=== PATIENT | female | born 1975 | race Caucasian/White ===

== ENCOUNTER → 2016-04-29 | Outpatient (REF) ==
[~2016-04-29] MED LIST: /ALEN7SOL OR; /DULO30CA OR; /HALO2TA OR; /OXCA30TA; /OXCA30TA OR; ASPI81TA83 OR; ATIV0.5T OR; ATIV1TAB2; CALCCHW12 OR; CRANPOW2; DEPA500T OR; DEPA500T2 OR; DEPA500T2 PO; Haldol PO; LOTRCRE TOP; MULTIVIT; No Historical Meds; No home meds; PLAV75TA2 OR; PRIL20CA; PRIL40CA PO; PROZ40CA OR; QUET30XR; RISP0.5T20 OR; RISP3TAB16; RISPERDAL CONSTA; SEROQUEL XR; SIMV40TA2 OR; VITAMIN; ZYPR10TA OR; ZYPR20TA OR
--- NOTE | 2016-04-29 16:46 | REP ---
LUMBAR SPINE, FOUR VIEWS: HISTORY: Degenerative disc disease. COMPARISON: 06/27/2014. There is no acute fracture or subluxation. The L3-4 and L4-5 intervertebral discs are decreased in height consistent with disc degeneration. An osteophyte is present on L4. IMPRESSION: Degenerative change as described above. Signed by Jose Solis MD 04/29/2016 04:56 P
--- NOTE | 2016-04-29 16:47 | REP ---
LEFT SHOULDER, THREE VIEWS: HISTORY: Degenerative joint disease. There is no acute fracture or dislocation. The joint spaces are normal in appearance. IMPRESSION: There is no acute fracture or dislocation. Signed by Jose Solis MD 04/29/2016 04:56 P
== END ==
LOC: M SMT 14:52
PROVIDERS: ATTEND Internal Medicine
DX: Z02.1 Encounter for pre-employment examination (principal)

== ENCOUNTER 2016-05-26 16:23 | Emergency (ER) | payer MEDICARE ==
[2016-05-26 18:19] LABS: BASO % 0.4 % (0.0-1.0); EOS # 0.4 K/mm3 (0.0-0.50); EOS % 3.1 % (0.0-3.0); LARGE UNSTAINED CELL # 0.1 K/mm3 (0.0-0.4); LARGE UNSTAINED CELL % 1.2 % (0.0-4.0); LYMPH # 3.2 K/mm3 (1.5-4.5); LYMPH % 24.4 % (24.0-44.0); MEAN CORPUSCULAR HEMOGLOBIN 31.5 pg (27.0-33.0); MEAN CORPUSCULAR HGB CONC 33.6 g/dl (32.0-36.5); MEAN CORPUSCULAR VOLUME 93.8 fl (80.0-96.0); MONO # 0.8 K/mm3 (0.0-0.8); MONO % 6.1 % (0.0-5.0); NEUTROPHILS % 64.8 % (36.0-66.0); PLATELET COUNT, AUTOMATED 292 k/mm3 (150-450); RED CELL DISTRIBUTION WIDTH 12.5 % (11.5-14.5); WHITE BLOOD COUNT 12.3 K/mm3 (4.0-10.0)
[2016-05-26 18:37] LABS: CONTROL LINE HCG INT CTR LINE PRESENT
[2016-05-26 18:43] LABS: ALBUMIN 3.3 GM/DL (3.2-5.2); ALBUMIN/GLOBULIN RATIO 0.79 (1.00-1.93); ALKALINE PHOSPHATASE 85 U/L (45-117); ALT/SGPT 27 U/L (12-78); ANION GAP 8 MEQ/L (8-16); AST/SGOT 12 U/L (15-37); BILIRUBIN,TOTAL < 0.1 MG/DL (0.2-1.0); BLOOD UREA NITROGEN 17 MG/DL (7-18); CALCIUM LEVEL 9.3 MG/DL (8.5-10.1); CARBON DIOXIDE LEVEL 29 MEQ/L (21-32); CHLORIDE LEVEL 106 MEQ/L (98-107); CREATININE FOR GFR 0.64 MG/DL (0.55-1.02); GLOMERULAR FILTRATION RATE > 60.0 (>58); GLUCOSE, FASTING 119 MG/DL (70-105); POTASSIUM SERUM 3.8 MEQ/L (3.5-5.1); SODIUM LEVEL 143 MEQ/L (136-145); TOTAL PROTEIN 7.5 GM/DL (6.4-8.2)
[2016-05-26] MEDS ORDERED: DOXYCYCLINE HYCLATE 100 MG TAB As Ordered ONE (20:47)
[2016-05-26] MEDS ORDERED: metroNIDAZOLE (FLAGYL) 500 MG TAB As Ordered ONE (20:47)
[2016-05-26] MEDS ORDERED: AZITHROMYCIN 250 MG TAB As Ordered ONE (20:48)
[2016-05-26] MEDS ORDERED: cefTRIAXone SOD 250 MG VIAL (J0696) As Ordered ONE (20:50)
[2016-05-26] MEDS ORDERED: LIDOCAINE 1% MDV 20ML VIAL As Ordered ONE (20:51)
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
[2016-05-27 10:59] LABS: CONTROL LINE INT CTR LINE PRESENT; HIV SCRN NEGATIVE (NEGATIVE); HIV SCRN1 NEGATIVE (NEGATIVE)
[2016-05-27 11:21] LABS: HEPATITIS B SURFACE ANTIBODY POSITIVE (POSITIVE)
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
== END 2016-05-26 21:39 | disposition home or self-care (01) ==
LOC: M ED 16:23
DX: K62.89 Other specified diseases of anus and rectum (principal); F25.9 Schizoaffective disorder, unspecified; F41.9 Anxiety disorder, unspecified; F32.9 Major depressive disorder, single episode, unspecified; Z79.899 Other long term (current) drug therapy; Z88.8 Allergy status to other drugs, medicaments and biological substances
CPT/HCPCS: 36415; 80053; 84703; 85025; 86706; 86780; 86803; 87340; 87806; 96372; 99285; J0696

== ENCOUNTER 2016-06-26 16:19 | Emergency (ER) | payer MEDICARE ==
[~2016-06-26] VITALS: Ht 160 cm; Wt 94.3 kg
[2016-06-26] MEDS ORDERED: BAYE325T12 PO (16:38)
[2016-06-26] MEDS ORDERED: DIVA500T3 PO (16:38)
[2016-06-26] MEDS ORDERED: HALD5INJ2 PO (16:38)
[2016-06-26] MEDS ORDERED: ST J1CAP PO (16:38)
--- NOTE | 2016-06-26 17:20 | REP ---
Clinical: Pain. Technique: AP, lateral, bilateral oblique views of the left hand. Findings: Age-related changes are appreciated including mild joint space narrowing involving the interphalangeal joints and mild degenerative changes to the radiocarpal joint. No acute fracture dislocation. No subcutaneous emphysema or radiodense foreign body. Impression: Mild age-related degenerative changes Signed by Kian Dial MD 06/26/2016 05:12 P
--- NOTE | 2016-06-26 17:27 | REP ---
Clinical: Trauma . Technique: AP, lateral, bilateral oblique views left ankle . Findings: No acute fracture or dislocation. Skeletal structures and joint spaces are intact and normal. Ankle mortise appears stable. No subcutaneous emphysema or radiodense foreign body. Impression: No acute fracture or dislocation. Signed by Kian Dial MD 06/26/2016 05:18 P
--- NOTE | 2016-06-26 17:27 | REP ---
Clinical: Trauma. Technique: AP and lateral views of the right forearm. Findings: No acute fracture or dislocation. Skeletal structures, joint spaces, and surrounding soft tissues appear normal. Impression: Normal right forearm. No acute fracture or dislocation. Signed by Kian Dial MD 06/26/2016 05:19 P
--- NOTE | 2016-06-26 17:28 | REP ---
Clinical: Trauma. Technique: AP view of the pelvis with neutral and frog lateral views of the left hip. Findings: No acute fracture dislocation. Skeletal structures, joint spaces, and surrounding soft tissues appear normal for age. Impression: No acute fracture or dislocation. Signed by Kian Dial MD 06/26/2016 05:19 P
--- NOTE | 2016-06-26 17:31 | REP ---
Clinical: Trauma. Technique: AP, lateral, bilateral oblique and sunrise views left knee. Comparison: 06/27/2014. Findings: The osseous structures and joint spaces are intact and there is no evidence for acute fracture or dislocation. No joint effusion is appreciated. Surrounding soft tissues are unremarkable. No subcutaneous emphysema or radiodense foreign body. [place] view suggests mild patellofemoral joint space narrowing. Impression: No acute fracture or dislocation. Signed by Kian Dial MD 06/26/2016 05:22 P
[2016-06-26 18:39] VITALS: BP 132/90
== END 2016-06-26 18:43 | disposition home or self-care (01) ==
LOC: EDBD 16:19 → EDSEX 16:19 → M ED 17:28
DX: T14.8 Other injury of unspecified body region (principal); V09.9XXA Pedestrian injured in unspecified transport accident, initial encounter; Y92.410 Unspecified street and highway as the place of occurrence of the external cause; Y93.01 Activity, walking, marching and hiking; Y99.9 Unspecified external cause status; Z79.82 Long term (current) use of aspirin; Z79.899 Other long term (current) drug therapy; Z91.040 Latex allergy status; Z91.010 Allergy to peanuts; Z88.8 Allergy status to other drugs, medicaments and biological substances

== ENCOUNTER 2019-01-24 14:24 | Inpatient (IN) | payer MEDICARE, OTHER ==
[~2019-01-24] VITALS: Ht 162.6 cm; Wt 108.8 kg
[~2019-01-24 14:24] MED LIST changes: -/DULO30CA OR; -/HALO2TA OR; -/OXCA30TA; -/OXCA30TA OR; +BAYE325T12 PO; +CYMB1CAP5 OR; +DIVA500T94 PO; +HALD5INJ2 PO; +HALO1TAB19 OR; -QUET30XR; +SERO300T20; +ST J300C15 PO; +TRIL1TAB; +TRIL1TAB OR
[2019-01-24 15:37] LABS: HEMOGLOBIN 14.9 g/dl (12.0-15.5); MEAN CORPUSCULAR HEMOGLOBIN 29.7 pg (27.0-33.0); MEAN CORPUSCULAR HGB CONC 32.4 g/dl (32.0-36.5); MEAN CORPUSCULAR VOLUME 91.8 fl (80.0-96.0); PLATELET COUNT, AUTOMATED 365 10^3/uL (150-450); RED BLOOD COUNT 5.01 10^6/uL (4.00-5.40); WHITE BLOOD COUNT 9.5 10^3/uL (4.0-10.0)
[2019-01-24 16:25] LABS: ACETAMINOPHEN LEVEL < 2.0 UG/ML (10.0-30.0); ALBUMIN 2.8 GM/DL (3.2-5.2); ALT/SGPT 55 U/L (12-78); BILIRUBIN,DIRECT < 0.1 MG/DL (0.0-0.2); BILIRUBIN,TOTAL 0.2 MG/DL (0.2-1.0); BLOOD UREA NITROGEN 14 MG/DL (7-18); CALCIUM LEVEL 8.6 MG/DL (8.5-10.1); CARBON DIOXIDE LEVEL 23 MEQ/L (21-32); CHLORIDE LEVEL 111 MEQ/L (98-107); CREATININE FOR GFR 0.86 MG/DL (0.55-1.30); ETHYL ALCOHOL (ETHANOL) < 0.003 % (0.000-0.010); GLOMERULAR FILTRATION RATE > 60.0 (>58); GLUCOSE, FASTING 154 MG/DL (70-100); POTASSIUM SERUM 3.9 MEQ/L (3.5-5.1); SALICYLATE LEVEL 3.4 MG/DL (5.0-30.0); SODIUM LEVEL 142 MEQ/L (136-145); TOTAL PROTEIN 6.7 GM/DL (6.4-8.2)
[2019-01-24] MEDS ORDERED: MAALOX 30 ML SUSP *UDC PO PRN (19:15)
[2019-01-24] MEDS ORDERED: MOM 30ML SUSPENSION UDC PO PRN (19:15)
[2019-01-24 22:11] VITALS: BP 134/92
[2019-01-25 07:46] VITALS: BP 125/75
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
[2019-01-25] MEDS: ACETAMINOPHEN TAB 650MG DOSE (2X325MG) PO PRN (12:20)
--- NOTE | 2019-01-25 13:07 | HPEPDOC ---
General Date of Admission Jan 24, 2019 at 19:10 Date of Service: Jan 25, 2019 Attending Physician: JON CARBONE MD Chief Complaint The patient is a 43-year-old female admitted with a reason for visit of Schizophrenia. Source: Patient, RN/MD Exam Limitations: No limitations Timing/Duration: Week(s) Severity: Mild Associated Symptoms: Denies Symptoms History of Present Illness Consultation Medical as Patient referred by Inpatient Mental Health Unit: Physical Examination 43 year old female seen today on inpatient mental health unit examination room for her physical examination by Medical Hospitalist JOINTER MACHINE for medical clearance. She has significant medical history of schizophrenia for which she was admitted inpatient on January 24 2019. She denies chest pain, palpitations, urine voices, seeing people objects, wanting to harm herself or someone else, shortn ess of breath, diarrhea, nausea and vomiting, dizziness, and fainting. Home Medications Scheduled Metformin HCl (Metformin HCl) 500 Mg Tablet, 500 MG PO ACB for DM Allergies Coded Allergies: NUTS (Verified Allergy, Unknown, 02/02/09) latex (Verified Allergy, Unknown, 01/24/19) risperidone (Verified Allergy, Unknown, 01/24/19) Past Medical History Medical History See HPI Family History Significant Family History: Diabetes Social History * Smoker: Denies Alcohol: Denies Drugs: prescription drugs Recent Travel/Sick Contacts: Denies: Recent travel, Recent sick contacts Psychosocial History: [place] SI and HI, Schizophrenia, Loose associations A-FIB/CHADSVASC A-FIB History Current/History of A-Fib/PAF?: No Review of Systems Constitutional: Denies: Chills, Fever, Malaise, Night Sweats, Weakness, Fatigue, Weight Loss, Lethargy, Other Eyes: Denies: Pain, Vision change, Conjunctivae inflammation, Eyelid inflam mation, Redness, Other ENT: Denies: Head Aches, Ear Pain, Dysphagia, Sinus Congestion, Post Nasal Drip, Sore Throat, Epistaxis, Other Symptoms Skin: Denies: Rash, Lesions, Jaundice, Bruising, Itching, Dry, Breakdown, Nail Changes, Other Pulmonary: Denies: Dyspnea, Cough, Pleuritic Chest Pain, Other Symptoms Cardiovascular: Denies: Chest Pain, Palpitations, Orthopnea, Paroxysmal Noc. Dyspnea, Edema, Lt Headedness, Other Symptoms Gastrointestinal: Denies: Nausea, Vomiting, Abdominal Pain, Diarrhea, Constipation, Melena, Hematochezia, Other Symptoms Genitourinary: Denies: Dysuria, Frequency, Incontinence, Hematuria, Retention, Other Symptoms Hematologic: Denies: Bruising, Bleeding Excessively, Petecchia, Purpura, Enlarged Lymph Nodes, Other Hematologic Endocrine: Denies: Polydipsia, Polyphagia, Polyuria, Heat Intolerance, Cold Intolerance, Other Endocrine Sx Musculoskeletal: Denies: Neck Pain, Back Pain, Shoulder Pain, Arm Pain, Hand Pain, Leg Pain, Foot Pain, Joint Pain, Muscle Pain, Spasms, Other Symptoms Neurological: Denies: Weakness, Numbness, Incoordination, Change in speech, Confusion, Seizures, Other Symptoms Psych: Reports: Depression Physical Examination General Exam: Positive: Alert, Cooperative, No Acute Distress Eye Exam: Positive: PERRLA, Conjunctiva & lids normal, EOMI ENT Exam: Positive: Atraumatic, Mucous membr. moist/pink, Pharynx Normal Neck Exam: Positive: Supple, +2 carotid pulse wo bruit Chest Exam: Positive: Clear to auscultation, Normal air movement Heart Exam: Positive: Rate Normal, Regular Rhythm, Normal S1, Normal S2 Abdomen Exam: Positive: Normal bowel sounds, Soft Extremity Exam: Positive: Normal pulses Skin Exam: Positive: Nl turgor and temperature Neuro Exam: Positive: Normal Gait, Strength at 5/5 X4 ext, Cranial Nerves 3-12 NL Psych Exam: Positive: Anxiety (states she is ready to go home), Memory Intact, Oriented x 3 Vital Signs Vital Signs Date Time Temp Pulse Resp B/P (MAP) Pulse Ox O2 Delivery O2 Flow Rate FiO2 01/25/19 07:46 99.1 94 16 125/75 (92) 01/25/19 07:44 Room Air 01/24/19 22:11 98 Laboratory Data Labs 24H Laboratory Tests 2 01/24/19 15:25: Nucleated Red Blood Cells % (auto) 0.0, Anion Gap 8, Glomerular Filtration Rate > 60.0, Calcium Level 8.6, Total Bilirubin 0.2, Direct Bilirubin < 0.1, Aspar [place] Amino Transf (AST/SGOT) 29, Alanine Aminotransferase (ALT/SGPT) 55, Alkaline Phosphatase 96, Total Protein 6.7, Albumin 2.8L, Albumin/Globulin Ratio 0.72L, Thyroid Stimulating Hormone (TSH) 3.200, Salicylates Level 3.4L, Acetaminophen Level < 2.0L, Ethyl Alcohol Level < 0.003 CBC/BMP Laboratory Tests 01/24/19 15:25 Problems (1) Schizophrenia Status: Acute Response to Treatment: Progressing Discussed With: Nurse, Patient Problem Specific Plan: Monitor Clinically Problem Text: 43 year old female seen today on inpatient mental health unit examination room for her physical examination by Medical Hospitalist JOINTER MACHINE for medical clearance. She has significant medical history of schizophrenia for which she was admitted inpatient on January 24 2019. Schizophrenia exacerbation.Acute on chronic Continue with Inpatient mental health psychiatry treatment plan of care ad therapy Yhu-[id number]-Bddti A1C 6.2 Episodes of hyperglycemia POC daily Patient is to follow-up with her primary care provider outpatient, will start patient on metformin 500 mg to be discharge with daily breakfast Patient is medically cleared, Vital signs stable. DVT prophylaxis: Not needed, patient ambulatory Discharge: Pending inpatient mental health Plan / VTE VTE Prophylaxis Ordered?: No VTE Exclusion Mechanical Proph: Low Risk for VTE VTE Exclusion Pharmacological: At Low Risk for VTE TRISTON BALTAZAR Jan 25, 2019 13:07
[2019-01-25 13:49] LABS: BASO # 0.1 10^3/uL (0.0-0.2); BASO % 0.6 % (0.0-1.0); EOS # 0.4 10^3/uL (0.0-0.5); HEMOGLOBIN 13.5 g/dl (12.0-15.5); LYMPH # 2.8 10^3/uL (1.5-5.0); LYMPH % 26.8 % (24.0-44.0); MEAN CORPUSCULAR HEMOGLOBIN 30.2 pg (27.0-33.0); MEAN CORPUSCULAR HGB CONC 32.1 g/dl (32.0-36.5); MONO # 0.7 10^3/uL (0.0-0.8); MONO % 6.9 % (0.0-5.0); NEUTROPHILS # 6.3 10^3/uL (1.5-8.5); NEUTROPHILS % 61.3 % (36.0-66.0); PLATELET COUNT, AUTOMATED 323 10^3/uL (150-450); RED BLOOD COUNT 4.47 10^6/uL (4.00-5.40); WHITE BLOOD COUNT 10.3 10^3/uL (4.0-10.0)
[2019-01-25 14:15] LABS: ALBUMIN 2.5 GM/DL (3.2-5.2); ALT/SGPT 55 U/L (12-78); BILIRUBIN,TOTAL 0.5 MG/DL (0.2-1.0); BLOOD UREA NITROGEN 13 MG/DL (7-18); CALCIUM LEVEL 8.4 MG/DL (8.5-10.1); CARBON DIOXIDE LEVEL 27 MEQ/L (21-32); CHLORIDE LEVEL 108 MEQ/L (98-107); CREATININE FOR GFR 0.75 MG/DL (0.55-1.30); GLOMERULAR FILTRATION RATE > 60.0 (>58); GLUCOSE, FASTING 126 MG/DL (70-100); POTASSIUM SERUM 3.6 MEQ/L (3.5-5.1); SODIUM LEVEL 141 MEQ/L (136-145); TOTAL PROTEIN 6.1 GM/DL (6.4-8.2)
[2019-01-25 14:44] LABS: HEMOGLOBIN A1c 6.2 %
[2019-01-25] MEDS: NICOTINE 21MG/24HR 1 EA TRANSDERMAL TD SCH (14:49)
[2019-01-25 18:01] VITALS: BP 129/68
[2019-01-26 06:35] VITALS: BP 141/94
[2019-01-26] MEDS: NICOTINE 21MG/24HR 1 EA TRANSDERMAL TD SCH (09:31)
--- NOTE | 2019-01-26 10:20 | MHIPNPDOC ---
[facility] Progress Note Progress Note Nicole Mahan Inpatient Progress Note Nicole Mahan Select Gender MRN: N/A Date of : MM/DD/YYYY Date of Service: 01/26/2019 History of Present Illness The patient a 43-year-old woman with a history of psychotic illness presents in a psychotic and bizarre state where she was unable to take care of herself. She had been inside of her home unable to attend to her needs. She was brought in by child support case officer as she was noted to become aggressive, bizarre, and unable to attend to her needs. When I met with the patient, she was unable to be engage with any meaningful interview as she was so psychotic and disorganized that she remained in her room for the majority of the day. Interval History The patient is attempted to be met with today, however she still remains fairly distorted, unable to engage in any meaningful interview. She sits in her room for the majority of the day acting fairly bizarre. She has only come out to eat and engaged to shower. However, she is unable to answer any of my questions to any meaningful degree. She is able to simply provide yes and no answers. She still remains highly distorted. She has had no major behavioral problems overnight. Review Of Systems General: Denies fever or appetite changes Cardiovascular: Denies Chest pain or palpitations GI: Denies Nausea, vomiting, or bowel changes Respiratory: Denies shortness of breath or cough Neuro: Denies dizziness, tremors Derm: Denies any rashes or pruritus MSK: Denies any muscle tightness or stiffness HEENT: Denies any vision changes or headaches Heme/Lymph: denies any bruising or bleeding Endo: denies any cold/heat intolerance or water intake changes Psychotherapy None on this visit. Vital Signs Reviewed. Mental Status Examination General: Poor hygiene. Speech: Sparse, monotonous. Thought processes: Tangential. MSK: Smooth and coordinated gait, no signs of tremors or involuntary orofacial movements Thought content: Bizarre. Abstract reasoning, and computation: Impaired. Description of associations: Impaired. Description of abnormal or psychotic thoughts: Denies any suicidal or homicidal ideation. Denies any auditory or visual hallucinations. Does appear to be responding to internal stimuli. Judgment: Poor. Insight: Poor. Orientation: Alert and orientated 3 Cognition: Grossly normal Recent and remote memory: Intact Attention span and concentration: Intact Fund of knowledge: Adequate Mood: "Fine." Affect: Flat with a constricted range. Diagnoses Schizophrenia, tobacco use disorder, unspecified. Assessment and Plan Schizophrenia: Start Haldol 5 mg nightly. Disposition The patient will need a further inpatient admission in order to treat her severe psychosis that impairs her from even basic activities placing her safety in danger. Time Spent 10 minutes [id number]. Vital Signs Vital Signs Date Time Temp Pulse Resp B/P (MAP) Pulse Ox O2 Delivery O2 Flow Rate FiO2 01/26/19 08:19 Room Air 01/26/19 06:35 98.0 67 16 141/94 (110) 01/24/19 22:11 98 Laboratory Data 24H Labs Laboratory Tests 2 01/25/19 13:35: Immature Granulocyte % (Auto) 0.4, Neutrophils (%) (Auto) 61.3, Lymphocytes (%) (Auto) 26.8, Monocytes (%) (Auto) 6.9H, Eosinophils (%) (Auto) 4.0H, Basophils (%) (Auto) 0.6, Neutrophils # (Auto) 6.3, Lymphocytes # (Auto) 2.8, Monocytes # (Auto) 0.7, Eosinophils # (Auto) 0.4, Basophils # (Auto) 0.1, Nucleated Red Blood Cells % (auto) 0.0, Anion Gap 6L, Glomerular Filtration Rate > 60.0, Estimated Mean Plasma Glucose 131H, Hemoglobin A1c 6.2, Calcium Level 8.4L, Total Bilirubin 0.5#, Aspartate Amino Transf (AST/SGOT) 32, Alanine Aminotransferase (ALT/SGPT) 55, Alkaline Phosphatase 77, Total Protein 6.1L, Albumin 2.5L, Albumin/Globulin Ratio 0.69L CBC/BMP Laboratory Tests 01/25/19 13:35 Current Medications Current Medications Medications (Trade) Dose Ordered Sig/Manuel Route PRN Reason Start Time Stop Time Status Last Admin Dose Admin Acetaminophen (Tylenol Tab) 650 mg Q6HP PRN PO HEADACHE or DISCOMFORT 01/24/19 19:15 01/25/19 12:20 Al Hydrox/Mg Hydrox/Simethicone (Mylanta) 30 ml Q4HP PRN PO HEARTBURN/INDIGESTION 01/24/19 19:15 Home Med (Med Rec Complete!) ASDIRECTED XX 01/24/19 20:15 01/24/19 20:15 DC Magnesium Hydroxide (Milk Of Magnesia) 30 ml DAILYPRN PRN PO CONSTIPATION 01/24/19 19:15 Nicotine (Nicoderm Cq 21mg) 1 patch DAILY TD 01/25/19 09:00 01/26/19 09:31 Olanzapine (ZyPREXA ZYDIS) 5 mg Q4HP PRN PO AGITATION 01/24/19 19:15 Trazodone HCl (Desyrel) 50 mg QHSP PRN PO INSOMNIA 01/24/19 19:15 Allergies Coded Allergies: NUTS (Verified Allergy, Unknown, 02/02/09) latex (Verified Allergy, Unknown, 01/24/19) risperidone (Verified Allergy, Unknown, 01/24/19) DILLAN ESPINOSA DO Jan 26, 2019 10:20
[2019-01-26 11:55] VITALS: BP 127/70
[2019-01-26 18:00] VITALS: BP 131/75
[2019-01-26] MEDS ORDERED: HALOPERIDOL 5 MG TAB PO SCH (21:00)
[2019-01-27] MEDS: OLANZapine ORAL DISINTEGRATING TAB 5MG PO PRN ×2 (04:25→09:14)
[2019-01-27 06:17] VITALS: BP 146/85
[2019-01-27] MEDS: NICOTINE 21MG/24HR 1 EA TRANSDERMAL TD SCH (09:14)
--- NOTE | 2019-01-27 10:03 | MHIPNPDOC ---
[facility] Progress Note Progress Note Nicole Mahan Inpatient Progress Note Nicole Mahan Select Gender MRN: N/A Date of : MM/DD/YYYY Date of Service: 01/27/2019 History of Present Illness The patient a 43-year-old woman with a history of psychotic illness presents in a psychotic and bizarre state where she was unable to take care of herself. She had been inside of her home unable to attend to her needs. She was brought in by manager case as she was noted to become aggressive, bizarre, and unable to attend to her needs. When I met with the patient, she was unable to be engage with any meaningful interview as she was so psychotic and disorganized that she remained in her room for the majority of the day. Interval History The patient is met with today. She reports that the Haldol was very effective and she is much less anxious and a little more focused today. She was more amenable and more talkative today, less bizarrely preoccupied. She still remains difficult to interview as she stares blankly when spoken to, however, she is able to engage with a discussion more thoroughly about her altered thoughts and her difficulty sleeping prior to coming in. She reports that she has had difficulty sleeping prior to coming into the hospital, but that she remembers nothing else. No major behavioral problems overnight, still requires significant prompting for basic hygiene and activities of daily living. Review Of Systems Denies any side effects from her medications. No tremors, dizziness, headaches, chest pain, palpitations, GI upset. Psychotherapy None on this visit. Vital Signs Reviewed. Mental Status Examination General: Poor hygiene. Speech: Improved. Thought processes: Tangential. MSK: Smooth and coordinated gait, no signs of tremors or involuntary orofacial movements Thought content: Bizarre. Abstract reasoning, and computation: Impaired. Description of associations: Impaired. Description of abnormal or psychotic thoughts: Denies any suicidal or homicidal ideation. Denies any auditory or visual hallucinations. Does appear to be responding to internal stimuli. Judgment: Poor. Insight: Poor. Orientation: Alert and orientated 3 Cognition: Grossly normal Recent and remote memory: Intact Attention span and concentration: Intact Fund of knowledge: Adequate Mood: "Fine." Affect: Flat with a constricted range. Diagnoses Schizophrenia, tobacco use disorder, unspecified. Assessment and Plan Schizophrenia: Increase Haldol to 5 mg BID. Tobacco use disorder: Nicotine patch. Disposition The patient will need a further inpatient admission in order to treat her severe psychosis that impairs her from even basic activities placing her safety in danger. Time Spent 10 minutes [id number]. Vital Signs Vital Signs Date Time Temp Pulse Resp B/P (MAP) Pulse Ox O2 Delivery O2 Flow Rate FiO2 01/27/19 06:17 98.3 94 16 146/85 (105) 01/26/19 11:55 96 Room Air Current Medications Current Medications Medications (Trade) Dose Ordered Sig/Manuel Route PRN Reason Start Time Stop Time Status Last Admin Dose Admin Acetaminophen (Tylenol Tab) 650 mg Q6HP PRN PO HEADACHE or DISCOMFORT 01/24/19 19:15 01/25/19 12:20 Al Hydrox/Mg Hydrox/Simethicone (Mylanta) 30 ml Q4HP PRN PO HEARTBURN/INDIGESTION 01/24/19 19:15 Haloperidol (Haldol) 5 mg QHS PO 01/26/19 21:00 01/26/19 20:51 Home Med (Med Rec Complete!) ASDIRECTED XX 01/24/19 20:15 01/24/19 20:15 DC Magnesium Hydroxide (Milk Of Magnesia) 30 ml DAILYPRN PRN PO CONSTIPATION 01/24/19 19:15 Nicotine (Nicoderm Cq 21mg) 1 patch DAILY TD 01/25/19 09:00 01/27/19 09:14 Olanzapine (ZyPREXA ZYDIS) 5 mg Q4HP PRN PO AGITATION 01/24/19 19:15 01/27/19 09:14 Trazodone HCl (Desyrel) 50 mg QHSP PRN PO INSOMNIA 01/24/19 19:15 Allergies Coded Allergies: NUTS (Verified Allergy, Unknown, 02/02/09) latex (Verified Allergy, Unknown, 01/24/19) risperidone (Verified Allergy, Unknown, 01/24/19) DILLAN ESPINOSA DO Jan 27, 2019 10:03
[2019-01-27] MEDS: HALOPERIDOL 5 MG TAB PO SCH ×2 (11:19→21:53)
[2019-01-27 18:00] VITALS: BP 140/86
[2019-01-27] MEDS ORDERED: METF-839 PO (18:32)
[2019-01-28 06:41] VITALS: BP 151/72
[2019-01-28] MEDS: metFORMIN (GLUCOPHAGE) 500 MG TAB PO SCH (08:00)
[2019-01-28] MEDS: HALOPERIDOL 5 MG TAB PO SCH ×2 (08:21→21:27)
[2019-01-28] MEDS: NICOTINE 21MG/24HR 1 EA TRANSDERMAL TD SCH (08:21)
[2019-01-28 16:09] VITALS: BP 122/57
[2019-01-28] MEDS: traZODone 50 MG TAB PO PRN (21:27)
[2019-01-29] MEDS: OLANZapine ORAL DISINTEGRATING TAB 5MG PO PRN (02:19)
[2019-01-29] MEDS: metFORMIN (GLUCOPHAGE) 500 MG TAB PO SCH (09:01)
[2019-01-29] MEDS: NICOTINE 21MG/24HR 1 EA TRANSDERMAL TD SCH (09:04)
[2019-01-29] MEDS: HALOPERIDOL 5 MG TAB PO SCH ×2 (09:04→22:10)
[2019-01-29 16:19] VITALS: BP 127/70
--- NOTE | 2019-01-29 21:50 | MHIPN ---
DATE: 01/28/2019 The patient today tells me as she is lying on her bed all wrapped up in her blanket, but her face is uncovered, she tells me "I'm doing good," and she said that she slept good. She had no eye contact throughout this. T MENTAL STATUS EXAM: The patient is alert. She is oriented to person and place. There is no formal thought disorder noted. She says her mood is "good." Affect is flat. I did not elicit any psychotic symptoms, but she appears to be responding to internal stimuli. She maintains no eye contact. She denies suicidal or homicidal ideations. Concentration is fair. Insight and judgment are poor. DIAGNOSIS: Schizophrenia. TREATMENT PLAN: We will continue to monitor this patient for continued resolution of psychotic symptoms and to titrate medications as indicated.. MTDD
[2019-01-29] MEDS: traZODone 50 MG TAB PO PRN (22:10)
[2019-01-30 06:54] VITALS: BP 145/74
[2019-01-30] MEDS: metFORMIN (GLUCOPHAGE) 500 MG TAB PO SCH (08:00)
[2019-01-30] MEDS: NICOTINE 21MG/24HR 1 EA TRANSDERMAL TD SCH (08:41)
[2019-01-30] MEDS: HALOPERIDOL 5 MG TAB PO SCH ×2 (08:41→21:46)
[2019-01-30] MEDS ORDERED: NYSTATIN OINTMENT 15 GM TOP PRN (12:00)
[2019-01-30] MEDS ORDERED: diphenhydrAMINE 25 MG CAP PO PRN (12:00)
[2019-01-30] MEDS: NYSTATIN 100,000 UNITS/GM TOPICAL PWD 15 GM EXT PRN (13:59)
[2019-01-30] MEDS ORDERED: FLUCONAZOLE 50MG TABLET PO ONE (14:00)
--- NOTE | 2019-01-30 19:25 | MHIPNPDOC ---
[facility] Progress Note Progress Note Nicole Mahan Inpatient Progress Note Nicole Mahan Select Gender MRN: N/A Date of : MM/DD/YYYY Date of Service: 01/30/2019 History of Present Illness The patient a 43-year-old woman with a history of psychotic illness presents in a psychotic and bizarre state where she was unable to take care of herself. She had been inside of her home unable to attend to her needs. She was brought in by case coordinator as she was noted to become aggressive, bizarre, and unable to attend to her needs. When I met with the patient, she was unable to be engage with any meaningful interview as she was so psychotic and disorganized that she remained in her room for the majority of the day. Interval History The patient's met with today. She's still somewhat bizarre, but reports that her anxiety has improved. She still remains isolated to her room, unable to discuss the events . Her family report that they are still cleaning her apartment and that is infested with rats and unsafe to return to. The patient still is quite bizarre, unable to engage in meaningful conversation other than more or less simple yes and no answers. The patient has not had any major behavioral problems, but has made some mild improvement in terms of her ability to socialize more, but continues to require prompting for basic ADLs. Review Of Systems Denies any side effects from her medications. No tremors, dizziness, headaches, chest pain, palpitations, GI upset. Psychotherapy None on this visit. Vital Signs Reviewed. Mental Status Examination General: Improved hygiene. Speech: Mildly more fluid. Thought processes: Tangential. MSK: Smooth and coordinated gait, no signs of tremors or involuntary orofacial movements Thought content: Bizarre. Abstract reasoning, and computation: Impaired. Description of associations: Impaired. Description of abnormal or psychotic thoughts: Denies any suicidal or homicidal ideation. Denies any auditory or visual hallucinations. Does appear to be responding to internal stimuli. Judgment: Poor. Insight: Poor. Orientation: Alert and orientated 3 Cognition: Grossly normal Recent and remote memory: Intact Attention span and concentration: Intact Fund of knowledge: Adequate Mood: "Fine." Affect: Flat with a constricted range. Diagnoses Schizophrenia, tobacco use disorder, unspecified. Assessment and Plan Schizophrenia: Continue 5 mg of Haldol BID. Tobacco use disorder: Nicotine patch. Disposition The patient will need a further inpatient admission in order to treat her severe psychosis that impairs her from even basic activities placing her safety in danger. Time Spent 15 minutes [id number]. Vital Signs Vital Signs Date Time Temp Pulse Resp B/P (MAP) Pulse Ox O2 Delivery O2 Flow Rate FiO2 01/30/19 06:54 97.3 93 16 145/74 (97) 01/29/19 07:57 Room Air 01/26/19 11:55 96 Current Medications Current Medications Medications (Trade) Dose Ordered Sig/Manuel Route PRN Reason Start Time Stop Time Status Last Admin Dose Admin Acetaminophen (Tylenol Tab) 650 mg Q6HP PRN PO HEADACHE or DISCOMFORT 01/24/19 19:15 01/25/19 12:20 Al Hydrox/Mg Hydrox/Simethicone (Mylanta) 30 ml Q4HP PRN PO HEARTBURN/INDIGESTION 01/24/19 19:15 Diphenhydramine HCl (Benadryl) 25 mg Q6HP PRN PO ITCHING 01/30/19 12:00 Haloperidol (Haldol) 5 mg BID PO 01/27/19 11:15 01/30/19 08:41 Haloperidol (Haldol) 5 mg QHS PO 01/26/19 21:00 01/27/19 11:06 DC 01/26/19 20:51 Home Med (Med Rec Complete!) ASDIRECTED XX 01/24/19 20:15 01/24/19 20:15 DC Magnesium Hydroxide (Milk Of Magnesia) 30 ml DAILYPRN PRN PO CONSTIPATION 01/24/19 19:15 Metformin HCl (Glucophage) 500 mg DAILY@08 PO 01/28/19 08:00 Nicotine (Nicoderm Cq 21mg) 1 patch DAILY TD 01/25/19 09:00 01/30/19 08:41 Nystatin (Mycostatin Powder, Nystop) Apply sparingly un... BIDP PRN EXT RASH 01/30/19 12:00 01/30/19 13:59 Nystatin (Mycostatin) Apply sparingly un... QIDP PRN TOP rash, aníbal infection skin 01/30/19 12:00 Olanzapine (ZyPREXA ZYDIS) 5 mg Q4HP PRN PO AGITATION 01/24/19 19:15 01/29/19 02:19 Trazodone HCl (Desyrel) 50 mg QHSP PRN PO INSOMNIA 01/24/19 19:15 01/29/19 22:10 Allergies Coded Allergies: NUTS (Verified Allergy, Unknown, 02/02/09) latex (Verified Allergy, Unknown, 01/24/19) risperidone (Verified Allergy, Unknown, 01/24/19) DILLAN ESPINOSA DO Jan 30, 2019 19:25
[2019-01-30] MEDS: traZODone 50 MG TAB PO PRN (21:46)
[2019-01-31 06:32] VITALS: BP 129/57
[2019-01-31] MEDS: metFORMIN (GLUCOPHAGE) 500 MG TAB PO SCH (08:00)
[2019-01-31] MEDS: HALOPERIDOL 5 MG TAB PO SCH ×2 (09:34→20:40)
[2019-01-31] MEDS: NICOTINE 21MG/24HR 1 EA TRANSDERMAL TD SCH (09:34)
--- NOTE | 2019-01-31 11:26 | MHIPNPDOC ---
[facility] Progress Note Progress Note Nciole Mahan Inpatient Progress Note Nicole Mahan Select Gender MRN: N/A Date of : MM/DD/YYYY Date of Service: 01/31/2019 History of Present Illness The patient a 43-year-old woman with a history of psychotic illness presents in a psychotic and bizarre state where she was unable to take care of herself. She had been inside of her home unable to attend to her needs. She was brought in by hospice case manager as she was noted to become aggressive, bizarre, and unable to attend to her needs. When I met with the patient, she was unable to be engage with any meaningful interview as she was so psychotic and disorganized that she remained in her room for the majority of the day. Interval History The patient is met with today. She appears a little more focused, however, she still focuses on getting Depakote, Zyprexa, Haldol and Xanax. She is unable to reason any rash other than this was her previous medication regimen that she did well on. She is unable to discuss anything in length. She still has not been bathing or engaging in any activities on the unit, isolating to her room. Her family has told her to clean her home as it is still quite dangerously dirty with rats and other vermin quite frequent. She's had no major behavioral problems overnight. Review Of Systems Denies any side effects from her medications. No tremors, dizziness, headaches, chest pain, palpitations, GI upset. Psychotherapy None on this visit. Vital Signs Reviewed. Mental Status Examination General: Improved hygiene. Speech: Mildly more fluid. Thought processes: Tangential. MSK: Smooth and coordinated gait, no signs of tremors or involuntary orofacial movements Thought content: Bizarre. Abstract reasoning, and computation: Impaired. Description of associations: Impaired. Description of abnormal or psychotic thoughts: Denies any suicidal or homicidal ideation. Denies any auditory or visual hallucinations. Does appear to be responding to internal stimuli. Judgment: Poor. Insight: Poor. Orientation: Alert and orientated 3 Cognition: Grossly normal Recent and remote memory: Intact Attention span and concentration: Intact Fund of knowledge: Adequate Mood: "Fine." Affect: Flat with a constricted range. Diagnoses Schizophrenia, tobacco use disorder, unspecified. Assessment and Plan Schizophrenia: Depakote 250 mg BID and Zyprexa 5 mg nightly. Tobacco use disorder: Nicotine patch. Disposition The patient will need a further inpatient admission in order to treat her severe psychosis that impairs her from even basic activities placing her safety in danger. Time Spent 15 minutes [id number]. Vital Signs Vital Signs Date Time Temp Pulse Resp B/P (MAP) Pulse Ox O2 Delivery O2 Flow Rate FiO2 01/31/19 06:32 97.4 89 14 129/57 (81) Room Air 01/26/19 11:55 96 Current Medications Current Medications Medications (Trade) Dose Ordered Sig/Manuel Route PRN Reason Start Time Stop Time Status Last Admin Dose Admin Acetaminophen (Tylenol Tab) 650 mg Q6HP PRN PO HEADACHE or DISCOMFORT 01/24/19 19:15 01/25/19 12:20 Al Hydrox/Mg Hydrox/Simethicone (Mylanta) 30 ml Q4HP PRN PO HEARTBURN/INDIGESTION 01/24/19 19:15 Diphenhydramine HCl (Benadryl) 25 mg Q6HP PRN PO ITCHING 01/30/19 12:00 Haloperidol (Haldol) 5 mg BID PO 01/27/19 11:15 01/31/19 09:34 Haloperidol (Haldol) 5 mg QHS PO 01/26/19 21:00 01/27/19 11:06 DC 01/26/19 20:51 Home Med (Med Rec Complete!) ASDIRECTED XX 01/24/19 20:15 01/24/19 20:15 DC Magnesium Hydroxide (Milk Of Magnesia) 30 ml DAILYPRN PRN PO CONSTIPATION 01/24/19 19:15 Metformin HCl (Glucophage) 500 mg DAILY@08 PO 01/28/19 08:00 Nicotine (Nicoderm Cq 21mg) 1 patch DAILY TD 01/25/19 09:00 01/31/19 09:34 Nystatin (Mycostatin Powder, Nystop) Apply sparingly un... BIDP PRN EXT RASH 01/30/19 12:00 01/30/19 13:59 Nystatin (Mycostatin) Apply sparingly un... QIDP PRN TOP rash, aníbal infection skin 01/30/19 12:00 Olanzapine (ZyPREXA ZYDIS) 5 mg Q4HP PRN PO AGITATION 01/24/19 19:15 01/29/19 02:19 Trazodone HCl (Desyrel) 50 mg QHSP PRN PO INSOMNIA 01/24/19 19:15 01/30/19 21:46 Allergies Coded Allergies: NUTS (Verified Allergy, Unknown, 02/02/09) latex (Verified Allergy, Unknown, 01/24/19) risperidone (Verified Allergy, Unknown, 01/24/19) DILLAN ESPINOSA DO Jan 31, 2019 11:26
[2019-01-31 16:09] VITALS: BP 123/72
[2019-01-31] MEDS: OLANZapine 10 MG TAB PO SCH (20:40)
[2019-01-31] MEDS: DIVALPROEX 250MG *ER* TAB PO SCH (20:40)
[2019-02-01 06:33] VITALS: BP 114/62
[2019-02-01] MEDS: metFORMIN (GLUCOPHAGE) 500 MG TAB PO SCH (07:56)
[2019-02-01] MEDS: NICOTINE 21MG/24HR 1 EA TRANSDERMAL TD SCH (07:58)
[2019-02-01] MEDS: DIVALPROEX 250MG *ER* TAB PO SCH ×2 (07:59→21:44)
[2019-02-01] MEDS: HALOPERIDOL 5 MG TAB PO SCH ×2 (07:59→21:44)
--- NOTE | 2019-02-01 11:54 | MHIPNPDOC ---
[facility] Progress Note Progress Note Inpatient Progress Note Nicole Mahan MRN: N/A Date of : N/A Date of Service: 02/01/2019 History of Present Illness The patient a 43-year-old woman with a history of psychotic illness presents in a psychotic and bizarre state where she was unable to take care of herself. She had been inside of her home unable to attend to her needs. She was brought in by immigration case worker as she was noted to become aggressive, bizarre, and unable to attend to her needs. When I met with the patient, she was unable to be engage with any meaningful interview as she was so psychotic and disorganized that she remained in her room for the majority of the day. Interval History The patient is met with today. She is more able to hold the conversation. She is less bizarre. She still reports that she feels the medication is helpful, but that she is unsure of her home situation. She still has required per nursing staff significant prompting in order to bathe. Remains severely impaired. She eats in her room and is generally guarded and not able to work with other individuals. However, she reports she likes the Haldol and Zyprexa. She asked questions about tardive, however, she is unable to follow up the questions with any meaningful discussion. No major behavioral problems overnight. Review Of Systems Denies any side effects from her medications. No tremors, dizziness, headaches, chest pain, palpitations, GI upset. Psychotherapy None on this visit. Vital Signs Reviewed. Mental Status Examination General: Improved hygiene. Speech: Mildly more fluid. Thought processes: Tangential. MSK: Smooth and coordinated gait, no signs of tremors or involuntary orofacial movements Thought content: Bizarre. Abstract reasoning, and computation: Impaired. Description of associations: Impaired. Description of abnormal or psychotic thoughts: Denies any suicidal or homicidal ideation. Denies any auditory or visual hallucinations. Does appear to be responding to internal stimuli. Judgment: Poor. Insight: Poor. Orientation: Alert and orientated 3 Cognition: Grossly normal Recent and remote memory: Intact Attention span and concentration: Intact Fund of knowledge: Adequate Mood: "Fine." Affect: Flat with a constricted range. Diagnoses Schizophrenia, tobacco use disorder, unspecified. Assessment and Plan Schizophrenia: Continue Haldol 5 mg BID, Zyprexa 5 mg nightly and Depakote 250 mg BID. Tobacco use disorder: Nicotine patch. Disposition The patient will need a further inpatient admission in order to treat her severe psychosis that impairs her from even basic activities placing her safety in d anger. Time Spent 15 minutes [id number]. Wednesday Vital Signs Vital Signs Date Time Temp Pulse Resp B/P (MAP) Pulse Ox O2 Delivery O2 Flow Rate FiO2 02/01/19 06:33 97.7 82 18 114/62 (79) 01/31/19 06:32 Room Air 01/26/19 11:55 96 Current Medications Current Medications Medications (Trade) Dose Ordered Sig/Manuel Route PRN Reason Start Time Stop Time Status Last Admin Dose Admin Acetaminophen (Tylenol Tab) 650 mg Q6HP PRN PO HEADACHE or DISCOMFORT 01/24/19 19:15 01/25/19 12:20 Al Hydrox/Mg Hydrox/Simethicone (Mylanta) 30 ml Q4HP PRN PO HEARTBURN/INDIGESTION 01/24/19 19:15 Diphenhydramine HCl (Benadryl) 25 mg Q6HP PRN PO ITCHING 01/30/19 12:00 Divalproex Sodium (Depakote Er) 250 mg BID PO 01/31/19 21:00 02/01/19 07:59 Haloperidol (Haldol) 5 mg BID PO 01/27/19 11:15 02/01/19 07:59 Haloperidol (Haldol) 5 mg QHS PO 01/26/19 21:00 01/27/19 11:06 DC 01/26/19 20:51 Home Med (Med Rec Complete!) ASDIRECTED XX 01/24/19 20:15 01/24/19 20:15 DC Magnesium Hydroxide (Milk Of Magnesia) 30 ml DAILYPRN PRN PO CONSTIPATION 01/24/19 19:15 Metformin HCl (Glucophage) 500 mg DAILY@08 PO 01/28/19 08:00 Nicotine (Nicoderm Cq 21mg) 1 patch DAILY TD 01/25/19 09:00 02/01/19 07:58 Nystatin (Mycostatin Powder, Nystop) Apply sparingly un... BIDP PRN EXT RASH 01/30/19 12:00 01/30/19 13:59 Nystatin (Mycostatin) Apply sparingly un... QIDP PRN TOP rash, aníbal infection skin 01/30/19 12:00 Olanzapine (ZyPREXA ZYDIS) 5 mg Q4HP PRN PO AGITATION 01/24/19 19:15 01/29/19 02:19 Olanzapine (ZyPREXA) 10 mg QHS PO 01/31/19 21:00 01/31/19 20:40 Trazodone HCl (Desyrel) 50 mg QHSP PRN PO INSOMNIA 01/24/19 19:15 01/30/19 21:46 Allergies Coded Allergies: NUTS (Verified Allergy, Unknown, 02/02/09) latex (Verified Allergy, Unknown, 01/24/19) risperidone (Verified Allergy, Unknown, 01/24/19) DILLAN ESPINOSA DO Feb 01, 2019 11:54
[2019-02-01 16:53] VITALS: BP 116/73
[2019-02-01] MEDS: traZODone 50 MG TAB PO PRN (21:44)
[2019-02-01] MEDS: OLANZapine 10 MG TAB PO SCH (21:44)
[2019-02-02] MEDS: metFORMIN (GLUCOPHAGE) 500 MG TAB PO SCH (07:52)
[2019-02-02] MEDS: DIVALPROEX 250MG *ER* TAB PO SCH ×2 (09:48→20:52)
[2019-02-02] MEDS: HALOPERIDOL 5 MG TAB PO SCH ×2 (09:49→20:51)
[2019-02-02] MEDS: NICOTINE 21MG/24HR 1 EA TRANSDERMAL TD SCH (09:49)
--- NOTE | 2019-02-02 11:28 | MHIPNPDOC ---
[facility] Progress Note Progress Note Nicole Mahan Inpatient Progress Note Nicole Mahan Select Gender MRN: N/A Date of : MM/DD/YYYY Date of Service: 02/02/2019 History of Present Illness The patient is a 43-year-old woman with a history of psychotic illness presents in a psychotic and bizarre state where she was unable to take care of herself. She had been inside of her home unable to attend to her needs. She was brought in by case therapist as she was noted to become aggressive, bizarre, and unable to attend to her needs. When I met with the patient, she was unable to be engage with any meaningful interview as she was so psychotic and disorganized that she remained in her room for the majority of the day. Interval History The patient is attempted to be met with tonight, however, she declines to meet as she is sleeping and too tired to meet. She described she has "no problems" and remained sleeping in her bed. Nursing staff notes that she is gaining more control over hygiene and requires less prompting for engaging in activities of daily living. She is having less problems with bizarreness and is getting a more linear thought process. She reports that she is "happy" on her medications as they are. Review Of Systems Denies any side effects, chest pain, palpitations, nausea, vomiting or any other concerns. Psychotherapy None on this visit. Vital Signs Reviewed. Mental Status Examination General: Improved hygiene. Speech: Mildly more fluid. Thought processes: Tangential. MSK: Smooth and coordinated gait, no signs of tremors or involuntary orofacial movements Thought content: Bizarre. Abstract reasoning, and computation: Impaired. Description of associations: Impaired. Description of abnormal or psychotic thoughts: Denies any suicidal or homicidal ideation. Denies any auditory or visual hallucinations. Does appear to be responding to internal stimuli less. Judgment: improving Insight: improving Orientation: Alert and orientated 3 Cognition: Grossly normal Recent and remote memory: Intact Attention span and concentration: Intact Fund of knowledge: Adequate Mood: "Fine." Affect: Flat with a constricted range. Diagnoses Schizophrenia, tobacco use disorder, unspecified. Assessment and Plan Schizophrenia: Continue Haldol 5 mg BID, Zyprexa 5 mg nightly and Depakote 250 mg BID. Tobacco use disorder: Nicotine patch. Disposition The patient will need a further inpatient admission in order to titrate her medications and to create a safe discharge plan. Time Spent 10 minutes [id number]. Vital Signs Vital Signs Date Time Temp Pulse Resp B/P (MAP) Pulse Ox O2 Delivery O2 Flow Rate FiO2 02/02/19 07:46 Room Air 02/01/19 16:53 97.9 100 16 116/73 (87) Current Medications Current Medications Medications (Trade) Dose Ordered Sig/Manuel Route PRN Reason Start Time Stop Time Status Last Admin Dose Admin Acetaminophen (Tylenol Tab) 650 mg Q6HP PRN PO HEADACHE or DISCOMFORT 01/24/19 19:15 01/25/19 12:20 Al Hydrox/Mg Hydrox/Simethicone (Mylanta) 30 ml Q4HP PRN PO HEARTBURN/INDIGESTION 01/24/19 19:15 Diphenhydramine HCl (Benadryl) 25 mg Q6HP PRN PO ITCHING 01/30/19 12:00 Divalproex Sodium (Depakote Er) 250 mg BID PO 01/31/19 21:00 02/02/19 09:48 Haloperidol (Haldol) 5 mg BID PO 01/27/19 11:15 02/02/19 09:49 Haloperidol (Haldol) 5 mg QHS PO 01/26/19 21:00 01/27/19 11:06 DC 01/26/19 20:51 Home Med (Med Rec Complete!) ASDIRECTED XX 01/24/19 20:15 01/24/19 20:15 DC Magnesium Hydroxide (Milk Of Magnesia) 30 ml DAILYPRN PRN PO CONSTIPATION 01/24/19 19:15 Metformin HCl (Glucophage) 500 mg DAILY@08 PO 01/28/19 08:00 Nicotine (Nicoderm Cq 21mg) 1 patch DAILY TD 01/25/19 09:00 02/02/19 09:49 Nystatin (Mycostatin Powder, Nystop) Apply sparingly un... BIDP PRN EXT RASH 01/30/19 12:00 01/30/19 13:59 Nystatin (Mycostatin) Apply sparingly un... QIDP PRN TOP rash, aníbal infection skin 01/30/19 12:00 Olanzapine (ZyPREXA ZYDIS) 5 mg Q4HP PRN PO AGITATION 01/24/19 19:15 01/29/19 02:19 Olanzapine (ZyPREXA) 10 mg QHS PO 01/31/19 21:00 02/01/19 21:44 Trazodone HCl (Desyrel) 50 mg QHSP PRN PO INSOMNIA 01/24/19 19:15 02/01/19 21:44 Allergies Coded Allergies: NUTS (Verified Allergy, Unknown, 02/02/09) latex (Verified Allergy, Unknown, 01/24/19) risperidone (Verified Allergy, Unknown, 01/24/19) DILLAN ESPINOSA DO Feb 02, 2019 11:28
[2019-02-02 18:00] VITALS: BP 111/57
[2019-02-02] MEDS: OLANZapine 10 MG TAB PO SCH (20:52)
[2019-02-02] MEDS: traZODone 50 MG TAB PO PRN (20:52)
[2019-02-03 07:00] VITALS: BP 115/66
[2019-02-03] MEDS: metFORMIN (GLUCOPHAGE) 500 MG TAB PO SCH (07:44)
[2019-02-03] MEDS: HALOPERIDOL 5 MG TAB PO SCH (08:17)
[2019-02-03] MEDS: DIVALPROEX 250MG *ER* TAB PO SCH (08:17)
[2019-02-03] MEDS: NICOTINE 21MG/24HR 1 EA TRANSDERMAL TD SCH (08:17)
--- NOTE | 2019-02-03 09:07 | MHIPNPDOC ---
[facility] Progress Note Progress Note Nicole Mahan Inpatient Progress Note Nicole Mahan Select Gender MRN: N/A Date of : MM/DD/YYYY Date of Service: 02/03/2019 History of Present Illness The patient is a 43-year-old woman with a history of psychotic illness presents in a psychotic and bizarre state where she was unable to take care of herself. She had been inside of her home unable to attend to her needs. She was brought in by case therapist as she was noted to become aggressive, bizarre, and unable to attend to her needs. When I met with the patient, she was unable to be engage with any meaningful interview as she was so psychotic and disorganized that she remained in her room for the majority of the day. Interval History The patient is met today with the treatment team. She does request discharge, however, she is unable to make any safe arrangements. The patient has reported that her mother is "lying" as she is unable to stay with her as her apartment is still being brought up to court and she currently has no running water and her apartment is still highly unsanitary. Patient was told that she would need to have a safe discharge plan, which she was unable to participate in. She still has some mild bizarreness, but her hygiene has improved and she has made strides towards a better more linear thought process, although at times she does d emonstrate some thought blocking. She has had no major behavioral problems overnight and has been compliant with medications. Review Of Systems Denies any difficulties with her medications, tremors, dizziness, headaches. Psychotherapy None on this visit. Vital Signs Reviewed. Mental Status Examination General: Improving hygiene Speech: More fluid Thought processes: More linear MSK: Smooth and coordinated gait, no signs of tremors or involuntary orofacial movements Thought content: More focused on discharge Abstract reasoning, and computation: Improved Description of associations: Mildly impaired Description of abnormal or psychotic thoughts: Denies any homicidal or suicidal ideation. Denies auditory or visual hallucinations. Does appear to have some mild thought blocking Judgment: Improved Insight: Improved Orientation: Alert and orientated 3 Cognition: Grossly normal Recent and remote memory: Intact Attention span and concentration: Intact Fund of knowledge: Adequate Mood: "fine" Affect: Still flat, but with more reactivity Diagnoses Schizophrenia, tobacco use disorder, unspecified. Assessment and Plan Schizophrenia: Increase Haldol to 10 mg BID. Continue Zyprexa 5 mg nightly and increase Depakote to 250 mg BID. Tobacco use disorder: Nicotine patch. Disposition The patient will be discharged pending safe placement that can be ascertained. She is currently unable to return home and has no reasonable safe discharge plan at this time. Time Spent 10 minutes [id number]. Vital Signs Vital Signs Date Time Temp Pulse Resp B/P (MAP) Pulse Ox O2 Delivery O2 Flow Rate FiO2 02/03/19 07:00 97.9 95 14 115/66 (82) 02/02/19 07:46 Room Air Current Medications Current Medications Medications (Trade) Dose Ordered Sig/Manuel Route PRN Reason Start Time Stop Time Status Last Admin Dose Admin Acetaminophen (Tylenol Tab) 650 mg Q6HP PRN PO HEADACHE or DISCOMFORT 01/24/19 19:15 01/25/19 12:20 Al Hydrox/Mg Hydrox/Simethicone (Mylanta) 30 ml Q4HP PRN PO HEARTBURN/INDIGESTION 01/24/19 19:15 Diphenhydramine HCl (Benadryl) 25 mg Q6HP PRN PO ITCHING 01/30/19 12:00 Divalproex Sodium (Depakote Er) 250 mg BID PO 01/31/19 21:00 02/03/19 08:17 Haloperidol (Haldol) 5 mg BID PO 01/27/19 11:15 02/03/19 08:17 Haloperidol (Haldol) 5 mg QHS PO 01/26/19 21:00 01/27/19 11:06 DC 01/26/19 20:51 Home Med (Med Rec Complete!) ASDIRECTED XX 01/24/19 20:15 01/24/19 20:15 DC Magnesium Hydroxide (Milk Of Magnesia) 30 ml DAILYPRN PRN PO CONSTIPATION 01/24/19 19:15 Metformin HCl (Glucophage) 500 mg DAILY@08 PO 01/28/19 08:00 Nicotine (Nicoderm Cq 21mg) 1 patch DAILY TD 01/25/19 09:00 02/03/19 08:17 Nystatin (Mycostatin Powder, Nystop) Apply sparingly un... BIDP PRN EXT RASH 01/30/19 12:00 01/30/19 13:59 Nystatin (Mycostatin) Apply sparingly un... QIDP PRN TOP rash, aníbal infection skin 01/30/19 12:00 Olanzapine (ZyPREXA ZYDIS) 5 mg Q4HP PRN PO AGITATION 01/24/19 19:15 01/29/19 02:19 Olanzapine (ZyPREXA) 10 mg QHS PO 01/31/19 21:00 02/02/19 20:52 Trazodone HCl (Desyrel) 50 mg QHSP PRN PO INSOMNIA 01/24/19 19:15 02/02/19 20:52 Allergies Coded Allergies: NUTS (Verified Allergy, Unknown, 02/02/09) latex (Verified Allergy, Unknown, 01/24/19) risperidone (Verified Allergy, Unknown, 01/24/19) DILLAN ESPINOSA DO Feb 03, 2019 09:07
[2019-02-03] MEDS: NYSTATIN 100,000 UNITS/GM TOPICAL PWD 15 GM EXT PRN (11:20)
[2019-02-03 13:08] VITALS: BP 123/77
[2019-02-03] MEDS: HALOPERIDOL 10 MG TAB PO SCH (21:38)
[2019-02-03] MEDS: DIVALPROEX 500MG *ER* TAB PO SCH (21:38)
[2019-02-03] MEDS: OLANZapine 10 MG TAB PO SCH (21:38)
[2019-02-04 06:58] VITALS: BP 126/74
[2019-02-04] MEDS: metFORMIN (GLUCOPHAGE) 500 MG TAB PO SCH (08:00)
[2019-02-04] MEDS: DIVALPROEX 500MG *ER* TAB PO SCH ×2 (08:50→21:28)
[2019-02-04] MEDS: HALOPERIDOL 10 MG TAB PO SCH ×2 (08:50→21:28)
[2019-02-04] MEDS: NICOTINE 21MG/24HR 1 EA TRANSDERMAL TD SCH (08:51)
[2019-02-04 16:10] VITALS: BP 103/55
[2019-02-04] MEDS: traZODone 100 MG TAB PO SCH (21:28)
[2019-02-04] MEDS: OLANZapine 10 MG TAB PO SCH (21:28)
[2019-02-05 06:40] VITALS: BP 125/82
[2019-02-05] MEDS: metFORMIN (GLUCOPHAGE) 500 MG TAB PO SCH (07:51)
[2019-02-05] MEDS: DIVALPROEX 500MG *ER* TAB PO SCH ×2 (08:21→20:56)
[2019-02-05] MEDS: HALOPERIDOL 10 MG TAB PO SCH ×2 (08:21→20:56)
[2019-02-05] MEDS: NICOTINE 21MG/24HR 1 EA TRANSDERMAL TD SCH (08:22)
[2019-02-05] MEDS: NYSTATIN 100,000 UNITS/GM TOPICAL PWD 15 GM EXT PRN ×2 (09:13→16:30)
[2019-02-05 16:24] VITALS: BP 110/59
--- NOTE | 2019-02-05 17:21 | IPNPDOC ---
Text Note Date of Service The patient was seen on 02/05/19. NOTE This is a limited note for a recall visit. This is a 43-year-old female admitted to the inpatient mental health unit with schizophrenia. She has very poor hygiene. She has not consistently allowed staff to bathe her and will not bathe herself. Nursing staff has noted remarkable candidal dermatitis rash to skin creases under her breasts and to her inguinal creases with some skin breakdown. The patient requested a female physician and allows only very limited exam. Note is made of candidal dermatitis rash under both breasts skin creases with erythema, some satellite lesions and the beginnings of skin breakdown. Decreased under her pannus looks good. Inguinal skin creases have minimal candidal dermatitis rash. Patient denies any itching or burning. She is not otherwise conversant. The nurses have nystatin powder and nystatin ointment available. The nystatin powder forms crusting that requires scrubbing away to reapply. Plans are to make use of the nystatin ointment on a scheduled basis. Again, please do not hesitate to reconsult us as needed. VS,Fishbone, I+O VS, Fishbone, I+O Vital Signs Date Time Temp Pulse Resp B/P (MAP) Pulse Ox O2 Delivery O2 Flow Rate FiO2 02/05/19 16:24 97.9 92 17 110/59 (76) 02/05/19 06:40 Room Air LANA QUEEN MD Feb 05, 2019 17:21
[2019-02-05] MEDS: NYSTATIN OINTMENT 15 GM TOP SCH (17:33)
[2019-02-05] MEDS: traZODone 100 MG TAB PO SCH (20:56)
[2019-02-05] MEDS: OLANZapine 10 MG TAB PO SCH (20:56)
[2019-02-06 06:30] VITALS: BP 124/84
[2019-02-06] MEDS: metFORMIN (GLUCOPHAGE) 500 MG TAB PO SCH (09:09)
[2019-02-06] MEDS: NICOTINE 21MG/24HR 1 EA TRANSDERMAL TD SCH (09:11)
[2019-02-06] MEDS: DIVALPROEX 500MG *ER* TAB PO SCH ×2 (09:11→20:44)
[2019-02-06] MEDS: HALOPERIDOL 10 MG TAB PO SCH ×2 (09:11→20:44)
[2019-02-06] MEDS: NYSTATIN OINTMENT 15 GM TOP SCH ×3 (09:11→20:44)
--- NOTE | 2019-02-06 10:14 | MHIPNPDOC ---
[facility] Progress Note Progress Note Nicole Mahan Inpatient Progress Note Nicole Mahan Select Gender MRN: N/A Date of : MM/DD/YYYY Date of Service: 02/06/2019 History of Present Illness The patient is a 43-year-old woman with a history of psychotic illness presents in a psychotic and bizarre state where she was unable to take care of herself. She had been inside of her home unable to attend to her needs. She was brought in by nurse case management as she was noted to become aggressive, bizarre, and unable to attend to her needs. When I met with the patient, she was unable to be engage with any meaningful interview as she was so psychotic and disorganized that she remained in her room for the majority of the day. Interval History The patient is met with briefly today. She reports that she wishes to go; however, she is fairly paranoid still and unable to allowing us to speak to her payee in order to arrange for safe discharge. Reportedly, her mother reports that her apartment is still too filthy and nonfunctional for her to return safely as she has no running water or other ability to take care of herself. The patient reports she is doing well on the medications with no major side effects. She has notedly become less bizarre and paranoid. She has had no major behavioral problems over the weekend and otherwise has been isolative. Eventually after discussing with the patient extensively, she agrees to sign for her payee to be contacted; however, we made it clear to the patient this is a condition of her discharge as her apartment is reportedly still quite dangerous for her to return to at this time . Review Of Systems Denies any difficulties with her medications, tremors, dizziness, headaches. General: Denies fever or weight changes Cardiovascular: Denies Chest pain or palpations GI: Denies Nausea, vomiting, or bowel changes Respiratory: Denies shortness of breath or cough Neuro: Denies dizziness, tremors Derm: Denies any rashes or pruritus : Denies any dysuria or sexual dysfunction MSK: Denies any muscle tightness or stiffness Heme/Lymph: denies any bruising or bleeding Endo: denies any cold/heat intolerance or water intake changes. Psychotherapy None on this visit. Vital Signs Reviewed. Mental Status Examination General: Improving hygiene Speech: More fluid Thought processes: More linear MSK: Smooth and coordinated gait, no signs of tremors or involuntary orofacial movements Thought content: More focused on discharge Abstract reasoning, and computation: Improved Description of associations: Mildly impaired Description of abnormal or psychotic thoughts: Denies any homicidal or suicidal ideation. Denies auditory or visual hallucinations. Does appear to have some mild thought blocking Judgment: Improved Insight: Improved Orientation: Alert and orientated 3 Cognition: Grossly normal Recent and remote memory: Intact Attention span and concentration: Intact Fund of knowledge: Adequate Mood: "fine" Affect: Still flat, but with more reactivity Diagnoses Schizophrenia, tobacco use disorder, unspecified. Assessment and Plan Schizophrenia: Continue Haldol 10 mg BID, increase Zyprexa to 10 mg nightly and increase Depakote to 250 mg BID. Tobacco use disorder: Nicotine patch. Disposition The patient will need a further inpatient admission in order to secure a safe discharge. She currently has no safe ability to return home, need to contact payee in order to ensure that she has save temporary housing in the interim before her apartment is made ready. Time Spent 15 minutes [id number]. Vital Signs Vital Signs Date Time Temp Pulse Resp B/P (MAP) Pulse Ox O2 Delivery O2 Flow Rate FiO2 02/06/19 06:30 98.8 95 16 124/84 (97) 02/05/19 06:40 Room Air Current Medications Current Medications Medications (Trade) Dose Ordered Sig/Manuel Route PRN Reason Start Time Stop Time Status Last Admin Dose Admin Acetaminophen (Tylenol Tab) 650 mg Q6HP PRN PO HEADACHE or DISCOMFORT 01/24/19 19:15 01/25/19 12:20 Al Hydrox/Mg Hydrox/Simethicone (Mylanta) 30 ml Q4HP PRN PO HEARTBURN/INDIGESTION 01/24/19 19:15 Diphenhydramine HCl (Benadryl) 25 mg Q6HP PRN PO ITCHING 01/30/19 12:00 Divalproex Sodium (Depakote Er) 250 mg BID PO 01/31/19 21:00 02/03/19 10:37 DC 02/03/19 08:17 Divalproex Sodium (Depakote Er) 500 mg BID PO 02/03/19 21:00 02/06/19 09:11 Haloperidol (Haldol) 5 mg BID PO 01/27/19 11:15 02/03/19 10:37 DC 02/03/19 08:17 Haloperidol (Haldol) 5 mg QHS PO 01/26/19 21:00 01/27/19 11:06 DC 01/26/19 20:51 Haloperidol (Haldol) 10 mg BID PO 02/03/19 21:00 02/06/19 09:11 Home Med (Med Rec Complete!) ASDIRECTED XX 01/24/19 20:15 01/24/19 20:15 DC Magnesium Hydroxide (Milk Of Magnesia) 30 ml DAILYPRN PRN PO CONSTIPATION 01/24/19 19:15 Metformin HCl (Glucophage) 500 mg DAILY@08 PO 01/28/19 08:00 Nicotine (Nicoderm Cq 21mg) 1 patch DAILY TD 01/25/19 09:00 02/06/19 09:11 Nystatin (Mycostatin Powder, Nystop) Apply sparingly un... BIDP PRN EXT RASH 01/30/19 12:00 02/05/19 17:11 DC 02/05/19 16:30 Nystatin (Mycostatin) Apply sparingly un... QIDP PRN TOP rash, aníbal infection skin 01/30/19 12:00 02/05/19 17:11 DC 02/03/19 11:21 Nystatin (Mycostatin) Apply sparingly un... TID TOP 02/05/19 21:00 02/06/19 09:11 Olanzapine (ZyPREXA ZYDIS) 5 mg Q4HP PRN PO AGITATION 01/24/19 19:15 01/29/19 02:19 Olanzapine (ZyPREXA) 10 mg QHS PO 01/31/19 21:00 02/05/19 20:56 Trazodone HCl (Desyrel) 50 mg QHSP PRN PO INSOMNIA 01/24/19 19:15 02/04/19 13:01 DC 02/02/19 20:52 Trazodone HCl (Desyrel) 100 mg QHS PO 02/04/19 21:00 02/05/19 20:56 Allergies Coded Allergies: NUTS (Verified Allergy, Unknown, 02/02/09) latex (Verified Allergy, Unknown, 01/24/19) risperidone (Verified Allergy, Unknown, 01/24/19) DILLAN ESPINOSA DO Feb 06, 2019 10:14
[2019-02-06 16:25] VITALS: BP 126/86
[2019-02-06] MEDS: traZODone 100 MG TAB PO SCH (20:44)
[2019-02-06] MEDS: OLANZapine 10 MG TAB PO SCH (20:44)
[2019-02-07 06:33] VITALS: BP 131/78
[2019-02-07] MEDS: metFORMIN (GLUCOPHAGE) 500 MG TAB PO SCH (08:00)
[2019-02-07] MEDS: HALOPERIDOL 10 MG TAB PO SCH ×2 (09:17→20:09)
[2019-02-07] MEDS: DIVALPROEX 500MG *ER* TAB PO SCH ×2 (09:17→20:08)
[2019-02-07] MEDS: NICOTINE 21MG/24HR 1 EA TRANSDERMAL TD SCH (09:18)
[2019-02-07] MEDS: NYSTATIN OINTMENT 15 GM TOP SCH ×3 (09:18→20:10)
--- NOTE | 2019-02-07 10:16 | MHIPNPDOC ---
[facility] Progress Note Progress Note Nicole Mahan Inpatient Progress Note Nicole Mahan Select Gender MRN: N/A Date of : MM/DD/YYYY Date of Service: 02/07/2019 History of Present Illness The patient is a 43-year-old woman with a history of psychotic illness presents in a psychotic and bizarre state where she was unable to take care of herself. She had been inside of her home unable to attend to her needs. She was brought in by machine adjuster leader case trim as she was noted to become aggressive, bizarre, and unable to attend to her needs. When I met with the patient, she was unable to be engage with any meaningful interview as she was so psychotic and disorganized that she remained in her room for the majority of the day. Interval History The patient is met with today. She is still somewhat paranoid and has been abstinent about signing releases. She reports that she wishes to go, however, she makes little fuss today about it. She has no safe place to go. Collateral information from mom reports the patient's apartment is still not livable as the filth had to be removed and she has no working appliances or water. The patient reports that she can have her payee get her hotel room, however, we would like to get a hold of this payee. The patient still has some paranoia and mild psychosis. She remains isolated to her room, generally not talking to very many people. She reports that she does have some more ease at times, but per nursing staff she has been improving. No major behavioral problems overnight. Review Of Systems General: Denies fever or weight changes Cardiovascular: Denies Chest pain or palpations GI: Denies Nausea, vomiting, or bowel changes Respiratory: Denies shortness of breath or cough Neuro: Denies dizziness, tremors Derm: Denies any rashes or pruritus : Denies any dysuria or sexual dysfunction MSK: Denies any muscle tightness or stiffness Heme/Lymph: denies any bruising or bleeding Endo: denies any cold/heat intolerance or water intake changes. Psychotherapy None on this visit. Vital Signs Reviewed. Mental Status Examination General: Fair hygiene Speech: More fluid Thought processes: Linear MSK: Smooth and coordinated gait, no signs of tremors or involuntary orofacial movements Thought content: Focused on discharge Abstract reasoning, and computation: Improved Description of associations: Still mildly flared Description of abnormal or psychotic thoughts: Denies any homicidal or suicidal ideation. Denies auditory or visual hallucinations. Does appear to have some mild thought blocking Judgment: Mildly improved Insight: Mildly improved Orientation: Alert and orientated 3 Cognition: Grossly normal Recent and remote memory: Intact Attention span and concentration: Intact Fund of knowledge: Adequate Mood: "fine" Affect: Still flat, but with more reactivity Diagnoses Schizophrenia, tobacco use disorder, unspecified. Assessment and Plan Schizophrenia: Continue Haldol 10 mg BID, increase Zyprexa to 10 mg nightly and increase Depakote to 500 mg BID. Tobacco use disorder: Nicotine patch. Disposition Unable to make safe discharge plan, potential d/c in the next few days Time Spent 15 mins [id number] Vital Signs Vital Signs Date Time Temp Pulse Resp B/P (MAP) Pulse Ox O2 Delivery O2 Flow Rate FiO2 02/07/19 06:33 99.1 84 14 131/78 (95) 02/06/19 16:25 96 02/05/19 06:40 Room Air Current Medications Current Medications Medications (Trade) Dose Ordered Sig/Manuel Route PRN Reason Start Time Stop Time Status Last Admin Dose Admin Acetaminophen (Tylenol Tab) 650 mg Q6HP PRN PO HEADACHE or DISCOMFORT 01/24/19 19:15 01/25/19 12:20 Al Hydrox/Mg Hydrox/Simethicone (Mylanta) 30 ml Q4HP PRN PO HEARTBURN/INDIGESTION 01/24/19 19:15 Diphenhydramine HCl (Benadryl) 25 mg Q6HP PRN PO ITCHING 01/30/19 12:00 Divalproex Sodium (Depakote Er) 250 mg BID PO 01/31/19 21:00 02/03/19 10:37 DC 02/03/19 08:17 Divalproex Sodium (Depakote Er) 500 mg BID PO 02/03/19 21:00 02/07/19 09:17 Haloperidol (Haldol) 5 mg BID PO 01/27/19 11:15 02/03/19 10:37 DC 02/03/19 08:17 Haloperidol (Haldol) 5 mg QHS PO 01/26/19 21:00 01/27/19 11:06 DC 01/26/19 20:51 Haloperidol (Haldol) 10 mg BID PO 02/03/19 21:00 02/07/19 09:17 Home Med (Med Rec Complete!) ASDIRECTED XX 01/24/19 20:15 01/24/19 20:15 DC Magnesium Hydroxide (Milk Of Magnesia) 30 ml DAILYPRN PRN PO CONSTIPATION 01/24/19 19:15 Metformin HCl (Glucophage) 500 mg DAILY@08 PO 01/28/19 08:00 Nicotine (Nicoderm Cq 21mg) 1 patch DAILY TD 01/25/19 09:00 02/07/19 09:18 Nystatin (Mycostatin Powder, Nystop) Apply sparingly un... BIDP PRN EXT RASH 01/30/19 12:00 02/05/19 17:11 DC 02/05/19 16:30 Nystatin (Mycostatin) Apply sparingly un... QIDP PRN TOP rash, aníbal infection skin 01/30/19 12:00 02/05/19 17:11 DC 02/03/19 11:21 Nystatin (Mycostatin) Apply sparingly un... TID TOP 02/05/19 21:00 02/07/19 09:18 Olanzapine (ZyPREXA ZYDIS) 5 mg Q4HP PRN PO AGITATION 01/24/19 19:15 01/29/19 02:19 Olanzapine (ZyPREXA) 10 mg QHS PO 01/31/19 21:00 02/06/19 20:44 Trazodone HCl (Desyrel) 50 mg QHSP PRN PO INSOMNIA 01/24/19 19:15 02/04/19 13:01 DC 02/02/19 20:52 Trazodone HCl (Desyrel) 100 mg QHS PO 02/04/19 21:00 02/06/19 20:44 Allergies Coded Allergies: NUTS (Verified Allergy, Unknown, 02/02/09) latex (Verified Allergy, Unknown, 01/24/19) risperidone (Verified Allergy, Unknown, 01/24/19) DILLAN ESPINOSA DO Feb 07, 2019 10:16
[2019-02-07] MEDS: OLANZapine 10 MG TAB PO SCH (20:09)
[2019-02-07] MEDS: traZODone 100 MG TAB PO SCH (20:09)
[2019-02-08 06:44] VITALS: BP 104/61
[2019-02-08] MEDS: metFORMIN (GLUCOPHAGE) 500 MG TAB PO SCH (08:00)
[2019-02-08] MEDS: HALOPERIDOL 10 MG TAB PO SCH ×2 (08:51→21:11)
[2019-02-08] MEDS: DIVALPROEX 500MG *ER* TAB PO SCH ×2 (08:51→21:12)
[2019-02-08] MEDS: NICOTINE 21MG/24HR 1 EA TRANSDERMAL TD SCH (08:52)
[2019-02-08] MEDS: NYSTATIN OINTMENT 15 GM TOP SCH ×3 (08:53→21:11)
--- NOTE | 2019-02-08 10:13 | MHIPNPDOC ---
[facility] Progress Note Progress Note Inpatient Progress Note Nicole Mahan MRN: N/A Date of : N/A Date of Service: 02/08/2019 History of Present Illness The patient is a 43-year-old woman with a history of psychotic illness presents in a psychotic and bizarre state where she was unable to take care of herself. She had been inside of her home unable to attend to her needs. She was brought in by family preservation caseworker as she was noted to become aggressive, bizarre, and unable to attend to her needs. When I met with the patient, she was unable to be engage with any meaningful interview as she was so psychotic and disorganized that she remained in her room for the majority of the day. Interval History The patient has met with today. She reports she is trying to get a hold of her payee. Her paranoia still remains somewhat present, but is improving. She reports that she is tolerating the medications well. She does describe some of the events that let her into remission. She reports that she is ambivalent about her apartment and wonders whether her mother's lying about whether it is ready. The patient has had no major behavioral problem. Does remain secluded to her room, but has demonstrated no unusual behavior. Her hygiene appears to be improving and she is more engaged at times walking around the unit than she has been previously. No major behavioral problems overnight. Review Of Systems General: Denies fever or weight changes Cardiovascular: Denies Chest pain or palpations GI: Denies Nausea, vomiting, or bowel changes Respiratory: Denies shortness of breath or cough Neuro: Denies dizziness, tremors Derm: Denies any rashes or pruritus : Denies any dysuria or sexual dysfunction MSK: Denies any muscle tightness or stiffness Heme/Lymph: denies any bruising or bleeding Endo: denies any cold/heat intolerance or water intake changes. Psychotherapy None on this visit. Vital Signs Reviewed. Mental Status Examination General: Fair hygiene Speech: More fluid Thought processes: Linear MSK: Smooth and coordinated gait, no signs of tremors or involuntary orofacial movements Thought content: Focused on discharge Abstract reasoning, and computation: Improved Description of associations: Still mildly impaired Description of abnormal or psychotic thoughts: Denies any homicidal or suicidal ideation. Denies auditory or visual hallucinations. Does appear to have some mild thought blocking Judgment: Improved Insight: Fair Orientation: Alert and orientated 3 Cognition: Grossly normal Recent and remote memory: Intact Attention span and concentration: Intact Fund of knowledge: Adequate Mood: "fine" Affect: Still flat, but with more reactivity Diagnoses Schizophrenia, tobacco use disorder, unspecified. Assessment and Plan Schizophrenia: Continue Haldol 10 mg BID, continue Zyprexa 10 mg with potential increase to 15 as well as increase Depakote to 750 mg BID. Tobacco use disorder: Nicotine patch. Disposition The patient will need a further inpatient admission to continue treatment as well as safety planning in order to get her a safe place to return to and we have not received a call back from her payee and the patient is still resolving enough to be able to get herself a hotel room by herself. Time Spent 15 minutes [id number] Wednesday Vital Signs Vital Signs Date Time Temp Pulse Resp B/P (MAP) Pulse Ox O2 Delivery O2 Flow Rate FiO2 02/08/19 06:44 97.8 88 14 104/61 (75) 02/06/19 16:25 96 02/05/19 06:40 Room Air Current Medications Current Medications Medications (Trade) Dose Ordered Sig/Manuel Route PRN Reason Start Time Stop Time Status Last Admin Dose Admin Acetaminophen (Tylenol Tab) 650 mg Q6HP PRN PO HEADACHE or DISCOMFORT 01/24/19 19:15 01/25/19 12:20 Al Hydrox/Mg Hydrox/Simethicone (Mylanta) 30 ml Q4HP PRN PO HEARTBURN/INDIGESTION 01/24/19 19:15 Diphenhydramine HCl (Benadryl) 25 mg Q6HP PRN PO ITCHING 01/30/19 12:00 Divalproex Sodium (Depakote Er) 250 mg BID PO 01/31/19 21:00 02/03/19 10:37 DC 02/03/19 08:17 Divalproex Sodium (Depakote Er) 500 mg BID PO 02/03/19 21:00 02/08/19 08:51 Haloperidol (Haldol) 5 mg BID PO 01/27/19 11:15 02/03/19 10:37 DC 02/03/19 08:17 Haloperidol (Haldol) 5 mg QHS PO 01/26/19 21:00 01/27/19 11:06 DC 01/26/19 20:51 Haloperidol (Haldol) 10 mg BID PO 02/03/19 21:00 02/08/19 08:51 Home Med (Med Rec Complete!) ASDIRECTED XX 01/24/19 20:15 01/24/19 20:15 DC Magnesium Hydroxide (Milk Of Magnesia) 30 ml DAILYPRN PRN PO CONSTIPATION 01/24/19 19:15 Metformin HCl (Glucophage) 500 mg DAILY@08 PO 01/28/19 08:00 Nicotine (Nicoderm Cq 21mg) 1 patch DAILY TD 01/25/19 09:00 02/08/19 08:52 Nystatin (Mycostatin Powder, Nystop) Apply sparingly un... BIDP PRN EXT RASH 01/30/19 12:00 02/05/19 17:11 DC 02/05/19 16:30 Nystatin (Mycostatin) Apply sparingly un... QIDP PRN TOP rash, aníbal infection skin 01/30/19 12:00 02/05/19 17:11 DC 02/03/19 11:21 Nystatin (Mycostatin) Apply sparingly un... TID TOP 02/05/19 21:00 02/08/19 08:53 Olanzapine (ZyPREXA ZYDIS) 5 mg Q4HP PRN PO AGITATION 01/24/19 19:15 01/29/19 02:19 Olanzapine (ZyPREXA) 10 mg QHS PO 01/31/19 21:00 02/07/19 20:09 Trazodone HCl (Desyrel) 50 mg QHSP PRN PO INSOMNIA 01/24/19 19:15 02/04/19 13:01 DC 02/02/19 20:52 Trazodone HCl (Desyrel) 100 mg QHS PO 02/04/19 21:00 02/07/19 20:09 Allergies Coded Allergies: NUTS (Verified Allergy, Unknown, 02/02/09) latex (Verified Allergy, Unknown, 01/24/19) risperidone (Verified Allergy, Unknown, 01/24/19) DILLAN ESPINOSA DO Feb 08, 2019 10:13
[2019-02-08 18:09] VITALS: BP 147/86
[2019-02-08] MEDS: OLANZapine 10 MG TAB PO SCH (21:12)
[2019-02-08] MEDS: ACETAMINOPHEN TAB 650MG DOSE (2X325MG) PO PRN (21:12)
[2019-02-08] MEDS: traZODone 100 MG TAB PO SCH (21:12)
[2019-02-09 06:36] VITALS: BP 129/65
[2019-02-09] MEDS: metFORMIN (GLUCOPHAGE) 500 MG TAB PO SCH (08:00)
[2019-02-09] MEDS: NICOTINE 21MG/24HR 1 EA TRANSDERMAL TD SCH (09:00)
[2019-02-09] MEDS: HALOPERIDOL 10 MG TAB PO SCH ×2 (09:00→20:37)
[2019-02-09] MEDS: NYSTATIN OINTMENT 15 GM TOP SCH ×3 (09:00→20:45)
[2019-02-09] MEDS: DIVALPROEX 500MG *ER* TAB PO SCH ×2 (09:00→20:38)
--- NOTE | 2019-02-09 16:37 | MHIPNPDOC ---
[facility] Progress Note Progress Note Inpatient Progress Note Nicole Mahan MRN: N/A Date of : N/A Date of Service: 02/09/2019 History of Present Illness The patient is a 43-year-old woman with a history of psychotic illness presents in a psychotic and bizarre state where she was unable to take care of herself. She had been inside of her home unable to attend to her needs. She was brought in by upper caser as she was noted to become aggressive, bizarre, and unable to attend to her needs. When I met with the patient, she was unable to be engage with any meaningful interview as she was so psychotic and disorganized that she remained in her room for the majority of the day. Interval History The patient is met with today. She is doing better. She is improved with less paranoia, less bizarreness and a better ability to coordinate her care. She is more engaged, talkative to others and able to communicate her needs better. She is responding well to treatment, reporting no side effects. Staff notes she is more social and more engaged than has had. No major behavioral problems overnight. Review Of Systems General: Denies fever or weight changes Cardiovascular: Denies chest pain or palpitations GI: Denies Nausea, vomiting, or bowel changes Respiratory: Denies shortness of breath or cough Neuro: Denies dizziness, tremors Derm: Denies any rashes or pruritus : Denies any dysuria or sexual dysfunction MSK: Denies any muscle tightness or stiffness Heme/Lymph: Denies any bruising or bleeding Endo: Denies any cold/heat intolerance or water intake changes. Psychotherapy None on this visit. Vital Signs Reviewed. Mental Status Examination General: Fair hygiene Speech: More fluid Thought processes: Linear MSK: Smooth and coordinated gait, no signs of tremors or involuntary orofacial movements Thought content: Focused on discharge Abstract reasoning, and computation: Improved Description of associations: Still mildly impaired Description of abnormal or psychotic thoughts: Denies any homicidal or suicidal ideation. Denies auditory or visual hallucinations. Does appear to have some mild thought blocking Judgment: Improved Insight: Fair Orientation: Alert and orientated 3 Cognition: Grossly normal Recent and remote memory: Intact Attention span and concentration: Intact Fund of knowledge: Adequate Mood: "fine" Affect: More reactive. Diagnoses Schizophrenia, tobacco use disorder, unspecified. Assessment and Plan Schizophrenia: Continue Haldol 10 mg BID, Zyprexa 10 mg nightly, which will be increased to 15 mg from previous evening, continue Depakote 750 mg BID. Tobacco use disorder: Nicotine. Disposition The patient will be attempted to be discharged tomorrow if safe discharge can be obtained due to difficulty with housing. Time Spent 15 minutes [id number]. Vital Signs Vital Signs Date Time Temp Pulse Resp B/P (MAP) Pulse Ox O2 Delivery O2 Flow Rate FiO2 02/09/19 06:36 96.9 80 16 129/65 (86) 02/06/19 16:25 96 02/05/19 06:40 Room Air Current Medications Current Medications Medications (Trade) Dose Ordered Sig/Manuel Route PRN Reason Start Time Stop Time Status Last Admin Dose Admin Acetaminophen (Tylenol Tab) 650 mg Q6HP PRN PO HEADACHE or DISCOMFORT 01/24/19 19:15 02/08/19 21:12 Al Hydrox/Mg Hydrox/Simethicone (Mylanta) 30 ml Q4HP PRN PO HEARTBURN/INDIGESTION 01/24/19 19:15 Diphenhydramine HCl (Benadryl) 25 mg Q6HP PRN PO ITCHING 01/30/19 12:00 Divalproex Sodium (Depakote Er) 250 mg BID PO 01/31/19 21:00 02/03/19 10:37 DC 02/03/19 08:17 Divalproex Sodium (Depakote Er) 500 mg BID PO 02/03/19 21:00 02/09/19 09:00 Haloperidol (Haldol) 5 mg BID PO 01/27/19 11:15 02/03/19 10:37 DC 02/03/19 08:17 Haloperidol (Haldol) 5 mg QHS PO 01/26/19 21:00 01/27/19 11:06 DC 01/26/19 20:51 Haloperidol (Haldol) 10 mg BID PO 02/03/19 21:00 02/09/19 09:00 Home Med (Med Rec Complete!) ASDIRECTED XX 01/24/19 20:15 01/24/19 20:15 DC Magnesium Hydroxide (Milk Of Magnesia) 30 ml DAILYPRN PRN PO CONSTIPATION 01/24/19 19:15 Metformin HCl (Glucophage) 500 mg DAILY@08 PO 01/28/19 08:00 Nicotine (Nicoderm Cq 21mg) 1 patch DAILY TD 01/25/19 09:00 02/09/19 09:00 Nystatin (Mycostatin Powder, Nystop) Apply sparingly un... BIDP PRN EXT RASH 01/30/19 12:00 02/05/19 17:11 DC 02/05/19 16:30 Nystatin (Mycostatin) Apply sparingly un... QIDP PRN TOP rash, aníbal infection skin 01/30/19 12:00 02/05/19 17:11 DC 02/03/19 11:21 Nystatin (Mycostatin) Apply sparingly un... TID TOP 02/05/19 21:00 02/09/19 16:18 Olanzapine (ZyPREXA ZYDIS) 5 mg Q4HP PRN PO AGITATION 01/24/19 19:15 01/29/19 02:19 Olanzapine (ZyPREXA) 10 mg QHS PO 01/31/19 21:00 02/08/19 10:19 DC 02/07/19 20:09 Olanzapine (ZyPREXA) 15 mg QHS PO 02/08/19 21:00 02/08/19 21:12 Trazodone HCl (Desyrel) 50 mg QHSP PRN PO INSOMNIA 01/24/19 19:15 02/04/19 13:01 DC 02/02/19 20:52 Trazodone HCl (Desyrel) 100 mg QHS PO 02/04/19 21:00 02/08/19 21:12 Allergies Coded Allergies: NUTS (Verified Allergy, Unknown, 02/02/09) latex (Verified Allergy, Unknown, 01/24/19) risperidone (Verified Allergy, Unknown, 01/24/19) DILLAN ESPINOSA DO Feb 09, 2019 16:37
[2019-02-09 18:00] VITALS: BP 120/68
[2019-02-09] MEDS: OLANZapine 10 MG TAB PO SCH (20:38)
[2019-02-09] MEDS: traZODone 100 MG TAB PO SCH (20:38)
[2019-02-09] MEDS: ACETAMINOPHEN TAB 650MG DOSE (2X325MG) PO PRN (20:39)
[2019-02-10 06:45] VITALS: BP 123/71
--- NOTE | 2019-02-10 07:16 | MHIPNPDOC ---
[facility] Progress Note Vital Signs Vital Signs Date Time Temp Pulse Resp B/P (MAP) Pulse Ox O2 Delivery O2 Flow Rate FiO2 02/10/19 06:45 98.1 84 14 123/71 (88) Room Air 02/06/19 16:25 96 Current Medications Current Medications Medications (Trade) Dose Ordered Sig/Manuel Route PRN Reason Start Time Stop Time Status Last Admin Dose Admin Acetaminophen (Tylenol Tab) 650 mg Q6HP PRN PO HEADACHE or DISCOMFORT 01/24/19 19:15 02/09/19 20:39 Al Hydrox/Mg Hydrox/Simethicone (Mylanta) 30 ml Q4HP PRN PO HEARTBURN/INDIGESTION 01/24/19 19:15 Diphenhydramine HCl (Benadryl) 25 mg Q6HP PRN PO ITCHING 01/30/19 12:00 Divalproex Sodium (Depakote Er) 250 mg BID PO 01/31/19 21:00 02/03/19 10:37 DC 02/03/19 08:17 Divalproex Sodium (Depakote Er) 500 mg BID PO 02/03/19 21:00 02/09/19 20:38 Haloperidol (Haldol) 5 mg BID PO 01/27/19 11:15 02/03/19 10:37 DC 02/03/19 08:17 Haloperidol (Haldol) 5 mg QHS PO 01/26/19 21:00 01/27/19 11:06 DC 01/26/19 20:51 Haloperidol (Haldol) 10 mg BID PO 02/03/19 21:00 02/09/19 20:37 Home Med (Med Rec Complete!) ASDIRECTED XX 01/24/19 20:15 01/24/19 20:15 DC Magnesium Hydroxide (Milk Of Magnesia) 30 ml DAILYPRN PRN PO CONSTIPATION 01/24/19 19:15 Metformin HCl (Glucophage) 500 mg DAILY@08 PO 01/28/19 08:00 Nicotine (Nicoderm Cq 21mg) 1 patch DAILY TD 01/25/19 09:00 02/09/19 09:00 Nystatin (Mycostatin Powder, Nystop) Apply sparingly un... BIDP PRN EXT RASH 01/30/19 12:00 02/05/19 17:11 DC 02/05/19 16:30 Nystatin (Mycostatin) Apply sparingly un... QIDP PRN TOP rash, aníbal infection skin 01/30/19 12:00 02/05/19 17:11 DC 02/03/19 11:21 Nystatin (Mycostatin) Apply sparingly un... TID TOP 02/05/19 21:00 02/09/19 16:18 Olanzapine (ZyPREXA ZYDIS) 5 mg Q4HP PRN PO AGITATION 01/24/19 19:15 01/29/19 02:19 Olanzapine (ZyPREXA) 10 mg QHS PO 01/31/19 21:00 02/08/19 10:19 DC 02/07/19 20:09 Olanzapine (ZyPREXA) 15 mg QHS PO 02/08/19 21:00 02/09/19 20:38 Trazodone HCl (Desyrel) 50 mg QHSP PRN PO INSOMNIA 01/24/19 19:15 02/04/19 13:01 DC 02/02/19 20:52 Trazodone HCl (Desyrel) 100 mg QHS PO 02/04/19 21:00 02/09/19 20:38 Allergies Coded Allergies: NUTS (Verified Allergy, Unknown, 02/02/09) latex (Verified Allergy, Unknown, 01/24/19) risperidone (Verified Allergy, Unknown, 01/24/19) DILLAN ESPINOSA DO Feb 10, 2019 07:15
[2019-02-10] MEDS: metFORMIN (GLUCOPHAGE) 500 MG TAB PO SCH (08:00)
--- NOTE | 2019-02-10 08:07 | MHDSPDOC ---
[facility] Discharge Summary Vital Signs/I&Os Vital Signs Date Time Temp Pulse Resp B/P (MAP) Pulse Ox O2 Delivery O2 Flow Rate FiO2 02/10/19 06:45 98.1 84 14 123/71 (88) Room Air 02/06/19 16:25 96 Medications Scheduled Divalproex Sodium (Depakote ER) 500 Mg Tab.er.24h, 500 MG PO BID for mood for 7 Days, #14 Haloperidol (Haloperidol) 10 Mg Tablet, 10 MG PO BID for thoughts for 7 Days, #14 Metformin HCl (Metformin HCl) 500 Mg Tablet, 500 MG PO ACB for DM, #30 Nicotine (Nicotine Patch) 21 Mg Patch.td24, 1 PATCH TD DAILY for tobacco for 30 Days, #30 Olanzapine (Olanzapine) 10 Mg Tablet, 15 MG PO QHS for thoughts for 7 Days, #13 Allergies Coded Allergies: NUTS (Verified Allergy, Unknown, 02/02/09) latex (Verified Allergy, Unknown, 01/24/19) risperidone (Verified Allergy, Unknown, 01/24/19) DILLAN ESPINOSA DO Feb 10, 2019 08:07
[2019-02-10] MEDS ORDERED: OLAN10TA2 PO ×2 (08:10→14:49)
[2019-02-10] MEDS ORDERED: DEPA500T2 PO ×2 (08:10→14:49)
[2019-02-10] MEDS ORDERED: HALO10TA20 PO ×2 (08:10→14:49)
[2019-02-10] MEDS ORDERED: NICO21PAT TD ×2 (08:10→14:49)
[2019-02-10] MEDS: NYSTATIN OINTMENT 15 GM TOP SCH ×3 (08:25→20:43)
[2019-02-10] MEDS: HALOPERIDOL 10 MG TAB PO SCH ×2 (08:25→20:43)
[2019-02-10] MEDS: DIVALPROEX 500MG *ER* TAB PO SCH ×2 (08:25→20:44)
[2019-02-10] MEDS: NICOTINE 21MG/24HR 1 EA TRANSDERMAL TD SCH (09:50)
[2019-02-10 18:00] VITALS: BP 135/69
[2019-02-10] MEDS: ACETAMINOPHEN TAB 650MG DOSE (2X325MG) PO PRN (18:42)
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
[2019-02-10] MEDS: OLANZapine 10 MG TAB PO SCH (20:43)
[2019-02-10] MEDS: traZODone 100 MG TAB PO SCH (20:43)
[2019-02-11 07:33] VITALS: BP 131/76
[2019-02-11] MEDS: metFORMIN (GLUCOPHAGE) 500 MG TAB PO SCH ×2 (08:00→08:12)
[2019-02-11] MEDS: DIVALPROEX 500MG *ER* TAB PO SCH ×2 (08:08→21:15)
[2019-02-11] MEDS: NICOTINE 21MG/24HR 1 EA TRANSDERMAL TD SCH (08:10)
[2019-02-11] MEDS: NYSTATIN OINTMENT 15 GM TOP SCH ×3 (08:11→21:14)
[2019-02-11] MEDS: HALOPERIDOL 10 MG TAB PO SCH ×2 (08:11→21:14)
[2019-02-11] MEDS: ACETAMINOPHEN TAB 650MG DOSE (2X325MG) PO PRN ×2 (08:12→14:22)
[2019-02-11 18:00] VITALS: BP 161/89
[2019-02-11] MEDS: IBUPROFEN 400 MG TAB PO PRN (21:15)
[2019-02-11] MEDS: traZODone 100 MG TAB PO SCH (21:15)
[2019-02-11] MEDS: OLANZapine 10 MG TAB PO SCH (21:16)
[2019-02-12 06:27] VITALS: BP 137/92
[2019-02-12] MEDS: metFORMIN (GLUCOPHAGE) 500 MG TAB PO SCH (07:28)
[2019-02-12] MEDS: DIVALPROEX 500MG *ER* TAB PO SCH ×2 (08:52→20:21)
[2019-02-12] MEDS: HALOPERIDOL 10 MG TAB PO SCH ×2 (08:52→20:20)
[2019-02-12] MEDS: NYSTATIN OINTMENT 15 GM TOP SCH ×3 (08:53→20:26)
[2019-02-12] MEDS: NICOTINE 21MG/24HR 1 EA TRANSDERMAL TD SCH (08:57)
[2019-02-12] MEDS: IBUPROFEN 400 MG TAB PO PRN ×2 (08:59→23:27)
[2019-02-12 12:05] VITALS: BP 147/80
[2019-02-12] MEDS: traZODone 100 MG TAB PO SCH (20:21)
[2019-02-12] MEDS: OLANZapine 10 MG TAB PO SCH (20:21)
[2019-02-13 06:35] VITALS: BP 123/76
[2019-02-13] MEDS: metFORMIN (GLUCOPHAGE) 500 MG TAB PO SCH (08:00)
[2019-02-13] MEDS: DIVALPROEX 500MG *ER* TAB PO SCH ×2 (08:47→21:15)
[2019-02-13] MEDS: NICOTINE 21MG/24HR 1 EA TRANSDERMAL TD SCH (08:48)
[2019-02-13] MEDS: HALOPERIDOL 10 MG TAB PO SCH ×2 (08:48→21:13)
[2019-02-13] MEDS: NYSTATIN OINTMENT 15 GM TOP SCH ×3 (08:48→21:15)
[2019-02-13] MEDS: IBUPROFEN 400 MG TAB PO PRN ×2 (08:50→18:42)
--- NOTE | 2019-02-13 10:20 | MHDSPDOC ---
[facility] Discharge Summary Vital Signs/I&Os Vital Signs Date Time Temp Pulse Resp B/P (MAP) Pulse Ox O2 Delivery O2 Flow Rate FiO2 02/13/19 06:35 97.7 104 16 123/76 (92) 02/10/19 06:45 Room Air Medications Scheduled Divalproex Sodium (Depakote ER) 500 Mg Tab.er.24h, 500 MG PO BID for mood for 7 Days, #14 Haloperidol (Haloperidol) 10 Mg Tablet, 10 MG PO BID for thoughts for 7 Days, #14 Metformin HCl (Metformin HCl) 500 Mg Tablet, 500 MG PO ACB for DM, #30 Nicotine (Nicotine Patch) 21 Mg Patch.td24, 1 PATCH TD DAILY for tobacco for 30 Days, #30 Olanzapine (Olanzapine) 10 Mg Tablet, 15 MG PO QHS for thoughts for 7 Days, #13 Allergies Coded Allergies: NUTS (Verified Allergy, Unknown, 02/02/09) latex (Verified Allergy, Unknown, 01/24/19) risperidone (Verified Allergy, Unknown, 01/24/19) DILLAN ESPINOSA DO Feb 13, 2019 10:20
--- NOTE | 2019-02-13 13:27 | MHIPNPDOC ---
[facility] Progress Note Progress Note Inpatient Progress Note Nicole Mahan MRN: N/A Date of : N/A Date of Service: 02/13/2019 History of Present Illness The patient is a 43-year-old woman with a history of psychotic illness presents in a psychotic and bizarre state where she was unable to take care of herself. She had been inside of her home unable to attend to her needs. She was brought in by showcase trimmer as she was noted to become aggressive, bizarre, and unable to attend to her needs. Interval History The patient is met with today. We've attempted to come up with a safe discharge plan as she has currently no place to go. She has resolved her psychosis, is much more amenable and is engaged well on her discharge planning. She reports that she wishes to go, however we have no place to discharge her. A significant amount of time was spent coordinating her care, attempting to find an alternative. Her payee was supposed to call us today, however neglected to do so. The patient was frustrated by this but was overall able to cope. She reports she is doing well on the medications and has no problem. She has been more social, engaged, talkative, and has attended a group or two over the weekend. Review Of Systems Denies any side effects from her medications. Psychotherapy None on this visit. Vital Signs Reviewed. Mental Status Examination General: Well dressed with good hygiene Speech: Spontaneous and fluid Thought processes: Linear and logical MSK: Smooth and coordinated gait, no signs of tremors or involuntary orofacial movements Thought content: Future orientated Abstract reasoning, and computation: Intact Description of associations: Intact Description of abnormal or psychotic thoughts: Denies any suicidal or homicidal ideation. Denies any auditory or visual hallucinations. Does not appear to be responding to internal stimuli. Does not appear to be endorsing any bizarre or paranoid ideation. Judgment: fair Insight: fair Orientation: Alert and orientated 3 Cognition: Grossly normal Recent and remote memory: Intact Attention span and concentration: Intact Fund of knowledge: Adequate Mood: "okay" Affect: Euthymic with a full range Diagnoses Schizophrenia, tobacco use disorder, unspecified. Assessment and Plan Schizophrenia: Continue Haldol, Zyprexa and Depakote as below. Tobacco use disorder: Nicotine. Disposition The patient will attempt to be discharged tomorrow, however, we need to find a safe discharge plan as she currently is homeless without any ability to take care for self due to the weather being extremely cold and her being still somewhat fragile in terms of her recently resolved symptoms. Her risk of dying is quite high if we are unable to come up with a safe disposition. Discharge tomorrow if safe discharge can be done. Time Spent 50 minutes with greater than half time on coordination of care. Wednesday Vital Signs Vital Signs Date Time Temp Pulse Resp B/P (MAP) Pulse Ox O2 Delivery O2 Flow Rate FiO2 02/13/19 06:35 97.7 104 16 123/76 (92) 02/10/19 06:45 Room Air Current Medications Current Medications Medications (Trade) Dose Ordered Sig/Manuel Route PRN Reason Start Time Stop Time Status Last Admin Dose Admin Acetaminophen (Tylenol Tab) 650 mg Q6HP PRN PO HEADACHE or DISCOMFORT 01/24/19 19:15 02/11/19 14:22 Al Hydrox/Mg Hydrox/Simethicone (Mylanta) 30 ml Q4HP PRN PO HEARTBURN/INDIGESTION 01/24/19 19:15 Diphenhydramine HCl (Benadryl) 25 mg Q6HP PRN PO ITCHING 01/30/19 12:00 Divalproex Sodium (Depakote Er) 250 mg BID PO 01/31/19 21:00 02/03/19 10:37 DC 02/03/19 08:17 Divalproex Sodium (Depakote Er) 500 mg BID PO 02/03/19 21:00 02/13/19 08:47 Haloperidol (Haldol) 5 mg BID PO 01/27/19 11:15 02/03/19 10:37 DC 02/03/19 08:17 Haloperidol (Haldol) 5 mg QHS PO 01/26/19 21:00 01/27/19 11:06 DC 01/26/19 20:51 Haloperidol (Haldol) 10 mg BID PO 02/03/19 21:00 02/13/19 08:48 Home Med (Med Rec Complete!) ASDIRECTED XX 01/24/19 20:15 01/24/19 20:15 DC Ibuprofen (Advil) 400 mg Q6HP PRN PO PAIN 02/11/19 21:15 02/13/19 08:50 Magnesium Hydroxide (Milk Of Magnesia) 30 ml DAILYPRN PRN PO CONSTIPATION 01/24/19 19:15 Metformin HCl (Glucophage) 500 mg DAILY@08 PO 01/28/19 08:00 Nicotine (Nicoderm Cq 21mg) 1 patch DAILY TD 01/25/19 09:00 02/13/19 08:48 Nystatin (Mycostatin Powder, Nystop) Apply sparingly un... BIDP PRN EXT RASH 01/30/19 12:00 02/05/19 17:11 DC 02/05/19 16:30 Nystatin (Mycostatin) Apply sparingly un... QIDP PRN TOP rash, aníbal infection skin 01/30/19 12:00 02/05/19 17:11 DC 02/03/19 11:21 Nystatin (Mycostatin) Apply sparingly un... TID TOP 02/05/19 21:00 02/13/19 08:48 Olanzapine (ZyPREXA ZYDIS) 5 mg Q4HP PRN PO AGITATION 01/24/19 19:15 01/29/19 02:19 Olanzapine (ZyPREXA) 10 mg QHS PO 01/31/19 21:00 02/08/19 10:19 DC 02/07/19 20:09 Olanzapine (ZyPREXA) 15 mg QHS PO 02/08/19 21:00 02/12/19 20:21 Trazodone HCl (Desyrel) 50 mg QHSP PRN PO INSOMNIA 01/24/19 19:15 02/04/19 13:01 DC 02/02/19 20:52 Trazodone HCl (Desyrel) 100 mg QHS PO 02/04/19 21:00 02/12/19 20:21 Allergies Coded Allergies: NUTS (Verified Allergy, Unknown, 02/02/09) latex (Verified Allergy, Unknown, 01/24/19) risperidone (Verified Allergy, Unknown, 01/24/19) DILLAN ESPINOSA DO Feb 13, 2019 13:27
[2019-02-13 18:36] VITALS: BP 139/89
[2019-02-13] MEDS: traZODone 100 MG TAB PO SCH (21:13)
[2019-02-13] MEDS: OLANZapine 10 MG TAB PO SCH (21:14)
[2019-02-14 06:28] VITALS: BP 116/79
[2019-02-14] MEDS: metFORMIN (GLUCOPHAGE) 500 MG TAB PO SCH (07:52)
[2019-02-14] MEDS: NICOTINE 21MG/24HR 1 EA TRANSDERMAL TD SCH (08:11)
[2019-02-14] MEDS: NYSTATIN OINTMENT 15 GM TOP SCH (08:11)
[2019-02-14] MEDS: HALOPERIDOL 10 MG TAB PO SCH (09:20)
[2019-02-14] MEDS: DIVALPROEX 500MG *ER* TAB PO SCH (09:20)
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
[2019-02-14] MEDS ORDERED: NICO21PAT TD (11:04)
[2019-02-14] MEDS ORDERED: OLAN10TA2 PO (11:04)
[2019-02-14] MEDS ORDERED: DEPA500T2 PO (11:04)
[2019-02-14] MEDS ORDERED: HALO10TA20 PO (11:04)
[2019-02-14] MEDS ORDERED: METF-839 PO (11:04)
== END 2019-02-14 12:45 | disposition home or self-care (01) | DRG 885 ==
LOC: M ED 14:24 → M ED INP 19:10 → M PSY 20:58
PROVIDERS: ADMIT Psychiatry & Neurology Psychiatry; ATTEND Psychiatry & Neurology Addiction Medicine
DX: F20.9 Schizophrenia, unspecified (principal); F17.200 Nicotine dependence, unspecified, uncomplicated; R73.03 Prediabetes; B37.2 Candidiasis of skin and nail; Z88.8 Allergy status to other drugs, medicaments and biological substances; Z91.040 Latex allergy status; Z91.018 Allergy to other foods; Z59.0 Homelessness

== ENCOUNTER 2022-09-24 07:35 | Inpatient (IN) | payer MEDICAID, MEDICARE ==
[2022-09-24] VITALS (12 sets, daily range): BP systolic 120–135; BP diastolic 58–72; TEMP 96.7–98.2; O2SAT 88–93
[~2022-09-24] VITALS: Ht 167.6 cm; Wt 127.7 kg
[~2022-09-24 07:35] MED LIST changes: +HALO10TA20 PO; +METF-839 PO; +NICO21PAT TD; +OLAN1TAB20 PO
[2022-09-24] MEDS ORDERED: predniSONE 20 MG TAB PO ONE (08:05)
[2022-09-24] MEDS: IPRATROPIUM 0.5MG/ALBUTEROL 2.5MG INH SOL UD 3ML (DUONEB) NEB SCH ×5 (08:22→18:14)
[2022-09-24 08:59] LABS: BASO # 0.1 10^3/uL (0.0-0.2); BASO % 0.3 % (0.0-1.0); EOS # 0.4 10^3/uL (0.0-0.5); EOS % 2.9 % (0.0-3.0); HEMATOCRIT 28.9 % (36.0-47.0); HEMOGLOBIN 8.1 g/dl (12.0-15.5); LYMPH # 3.3 10^3/uL (1.5-5.0); LYMPH % 22.2 % (24.0-44.0); MEAN CORPUSCULAR HEMOGLOBIN 23.3 pg (27.0-33.0); MONO % 6.6 % (2.0-8.0); NEUTROPHILS % 66.7 % (36.0-66.0); PLATELET COUNT, AUTOMATED 427 10^3/uL (150-450); RED BLOOD COUNT 3.48 10^6/uL (4.00-5.40)
[2022-09-24 09:24] LABS: BLOOD UREA NITROGEN 10 MG/DL (9-23); CARBON DIOXIDE LEVEL 32 MMOL/L (20-31); CHLORIDE LEVEL 105 MMOL/L (98-107); CREATININE FOR GFR 0.54 MG/DL (0.55-1.30); GLOMERULAR FILTRATION RATE > 60.0 (>58); GLUCOSE, FASTING 158 MG/DL (60-100); POTASSIUM SERUM 4.4 MMOL/L (3.5-5.1); SODIUM LEVEL 141 MMOL/L (136-145)
[2022-09-24] MEDS ORDERED: PRED20TA PO (09:53)
[2022-09-24] MEDS ORDERED: ALBU2.5V10 NEB (09:53)
[2022-09-24] MEDS ORDERED: AMOX875T2 PO (09:53)
[2022-09-24] MEDS ORDERED: AUGMENTIN 875 MG TAB PO ONE (09:55)
[2022-09-24] MEDS ORDERED: IPRATROPIUM 0.5MG/ALBUTEROL 2.5MG INH SOL UD 3ML (DUONEB) As Ordered ONE (10:29)
[2022-09-24] MEDS ORDERED: IPRATROPIUM 0.5MG/ALBUTEROL 2.5MG INH SOL UD 3ML (DUONEB) NEB ONE (10:35)
[2022-09-24] MEDS ORDERED: NS 1,000 ML IV SCH (11:20)
[2022-09-24] MEDS ORDERED: AZITHROMYCIN INJ 500 MG, VIAL MATE ADAPTER 1 EACH in NS 250 ML IV ONE (11:20)
[2022-09-24] MEDS ORDERED: MED REC IN PROGRESS XX SCH (12:00)
[2022-09-24] MEDS ORDERED: NS 1,000 ML IV ONE (12:45)
[2022-09-24] MEDS ORDERED: ISOVUE-370 76% 100ML VIAL As Ordered ONE (12:54)
[2022-09-24] MEDS ORDERED: DIVA500T9 PO (13:02)
[2022-09-24] MEDS ORDERED: HALO5TAB33 PO (13:04)
[2022-09-24] MEDS ORDERED: OLAN1TAB20 PO (13:06)
[2022-09-24] MEDS ORDERED: DIVA250T67 PO (13:34)
[2022-09-24] MEDS ORDERED: HOME MED LIST COMPLETE! XX SCH (13:40)
[2022-09-24 14:13] LABS: IRON (FE) 12 UG/DL (50-170); PERCENT SATURATION 3.4 % (13.2-45.0); TOTAL IRON BINDING CAPACITY 351 UG/DL (250-425)
[2022-09-24 14:16] LABS: FERRITIN 7.7 NG/ML (7.3-270.7)
[2022-09-24 15:29] LABS: ABG BASE EXCESS 1.8 (-2.0-2.0); ABG HCO3 27.9 MMOL/L (22.0-26.0); ABG O2 SATURATION 91.3 % (95.0-99.0); ABG PARTIAL PRESSURE CO2 51.5 mmHg (35.0-45.0); ABG PARTIAL PRESSURE O2 66.1 mmHg (75.0-100.0); ABG TOTAL CO2 29.4 MMOL/L (22.0-29.0); ABG pH (ARTERIAL) 7.351 UNITS (7.350-7.450)
[2022-09-24] MEDS: NS 1,000 ML IV SCH ×2 (15:53→21:47)
[2022-09-24] MEDS: cefTRIAXone SOD 1 GM in D5W MINI-BAG PLUS 50 ML IV SCH (15:53)
[2022-09-24 17:09] LABS: HCG, SERUM QUALITATIVE NEGATIVE (NEGATIVE)
[2022-09-24] MEDS ORDERED: NS 500 ML IV ONE (19:55)
[2022-09-24] MEDS: NICOTINE 14 MG/24 HR TRANSDERMAL TD SCH (20:35)
[2022-09-24] MEDS: OLANZapine 10 MG TAB PO SCH (20:35)
[2022-09-24] MEDS: DOXYCYCLINE HYCLATE 100MG TABLET PO SCH (20:35)
[2022-09-24] MEDS: DIVALPROEX 250MG TAB PO SCH (20:36)
[2022-09-24] MEDS ORDERED: ACETAMINOPHEN TAB 650MG DOSE (2X325MG) PO ONE (23:25)
[2022-09-25] VITALS (31 sets, daily range): BP systolic 113–144; BP diastolic 55–77; TEMP 96.7–98; O2SAT 87–95
[2022-09-25] MEDS: IPRATROPIUM 0.5MG/ALBUTEROL 2.5MG INH SOL UD 3ML (DUONEB) NEB SCH ×4 (00:33→19:43)
[2022-09-25 04:01] LABS: BASO # 0.1 10^3/uL (0.0-0.2); BASO % 0.3 % (0.0-1.0); EOS % 0.1 % (0.0-3.0); HEMATOCRIT 25.8 % (36.0-47.0); LYMPH # 3.4 10^3/uL (1.5-5.0); LYMPH % 22.2 % (24.0-44.0); MEAN CORPUSCULAR HEMOGLOBIN 22.6 pg (27.0-33.0); MEAN CORPUSCULAR HGB CONC 26.7 g/dl (32.0-36.5); MEAN CORPUSCULAR VOLUME 84.6 fl (80.0-96.0); MONO # 1.2 10^3/uL (0.0-0.8); MONO % 8.1 % (2.0-8.0); NEUTROPHILS # 10.2 10^3/uL (1.5-8.5); NEUTROPHILS % 67.6 % (36.0-66.0); PLATELET COUNT, AUTOMATED 403 10^3/uL (150-450); RED BLOOD COUNT 3.05 10^6/uL (4.00-5.40); WHITE BLOOD COUNT 15.2 10^3/uL (4.0-10.0)
[2022-09-25 04:23] LABS: BLOOD UREA NITROGEN 7 MG/DL (9-23); CALCIUM LEVEL 7.9 MG/DL (8.5-10.1); CARBON DIOXIDE LEVEL 32 MMOL/L (20-31); CHLORIDE LEVEL 106 MMOL/L (98-107); CREATININE FOR GFR 0.51 MG/DL (0.55-1.30); GLOMERULAR FILTRATION RATE > 60.0 (>58); GLUCOSE, FASTING 227 MG/DL (60-100); POTASSIUM SERUM 4.3 MMOL/L (3.5-5.1); SODIUM LEVEL 141 MMOL/L (136-145)
[2022-09-25 04:54] LABS: HEMOGLOBIN 6.9 g/dl (12.0-15.5)
[2022-09-25] MEDS: NS 1,000 ML IV SCH (05:17)
[2022-09-25] MEDS: predniSONE 20 MG TAB PO SCH (09:37)
[2022-09-25] MEDS: NICOTINE 14 MG/24 HR TRANSDERMAL TD SCH (09:38)
[2022-09-25] MEDS: DIVALPROEX 500MG *ER* TAB PO SCH (09:38)
[2022-09-25] MEDS: DOXYCYCLINE HYCLATE 100MG TABLET PO SCH ×2 (09:38→20:18)
[2022-09-25] MEDS: ACETAMINOPHEN TAB 650MG DOSE (2X325MG) PO PRN ×2 (13:01→20:18)
[2022-09-25 14:15] LABS: HEMATOCRIT 31.4 % (36.0-47.0); HEMOGLOBIN 8.7 g/dl (12.0-15.5)
[2022-09-25] MEDS: DIVALPROEX 250MG TAB PO SCH ×2 (15:10→20:18)
[2022-09-25] MEDS: cefTRIAXone SOD 1 GM in D5W MINI-BAG PLUS 50 ML IV SCH (15:15)
[2022-09-25] MEDS ORDERED: GLUCAGON INJ 1MG VIAL SC PRN (18:00)
[2022-09-25] MEDS ORDERED: GLUCOSE 4GM CHEW TABLET PO PRN (18:00)
[2022-09-25] MEDS ORDERED: DEXTROSE 50% 50ML SYRINGE IV PRN (18:00)
[2022-09-25] MEDS: INSULIN LISPRO (NovoLOG) PER UNIT SC SCH ×2 (18:33→20:19)
[2022-09-25 18:46] LABS: HEMOGLOBIN A1c 7.4 % (4.0-6.0)
[2022-09-25] MEDS: SYMBICORT 160/4.5MCG INHALER 6GM INH SCH (19:44)
[2022-09-25 20:02] LABS: HEMATOCRIT 32.9 % (36.0-47.0); HEMOGLOBIN 9.3 g/dl (12.0-15.5)
[2022-09-25] MEDS: medroxyPROGESTERone 5MG TABLET PO SCH (20:18)
[2022-09-25] MEDS: OLANZapine 10 MG TAB PO SCH (20:18)
[2022-09-26] VITALS (16 sets, daily range): BP systolic 110–135; BP diastolic 50–82; TEMP 96.9–97.7; O2SAT 84–95
[2022-09-26] MEDS: IPRATROPIUM 0.5MG/ALBUTEROL 2.5MG INH SOL UD 3ML (DUONEB) NEB SCH ×4 (01:18→19:13)
[2022-09-26 01:46] LABS: HEMATOCRIT 30.8 % (36.0-47.0); HEMOGLOBIN 8.6 g/dl (12.0-15.5)
[2022-09-26 05:13] LABS: BASO # 0.1 10^3/uL (0.0-0.2); BASO % 0.4 % (0.0-1.0); EOS % 0.1 % (0.0-3.0); HEMATOCRIT 30.7 % (36.0-47.0); HEMOGLOBIN 8.5 g/dl (12.0-15.5); LYMPH # 2.6 10^3/uL (1.5-5.0); LYMPH % 16.6 % (24.0-44.0); MEAN CORPUSCULAR HEMOGLOBIN 23.4 pg (27.0-33.0); MEAN CORPUSCULAR HGB CONC 27.7 g/dl (32.0-36.5); MEAN CORPUSCULAR VOLUME 84.6 fl (80.0-96.0); MONO # 0.9 10^3/uL (0.0-0.8); MONO % 5.8 % (2.0-8.0); NEUTROPHILS # 11.5 10^3/uL (1.5-8.5); NEUTROPHILS % 74.6 % (36.0-66.0); PLATELET COUNT, AUTOMATED 425 10^3/uL (150-450); RED BLOOD COUNT 3.63 10^6/uL (4.00-5.40); WHITE BLOOD COUNT 15.4 10^3/uL (4.0-10.0)
[2022-09-26 05:38] LABS: BLOOD UREA NITROGEN 10 MG/DL (9-23); CALCIUM LEVEL 8.3 MG/DL (8.5-10.1); CARBON DIOXIDE LEVEL 32 MMOL/L (20-31); CHLORIDE LEVEL 103 MMOL/L (98-107); CREATININE FOR GFR 0.48 MG/DL (0.55-1.30); GLOMERULAR FILTRATION RATE > 60.0 (>58); GLUCOSE, FASTING 271 MG/DL (60-100); POTASSIUM SERUM 5.1 MMOL/L (3.5-5.1); SODIUM LEVEL 138 MMOL/L (136-145)
[2022-09-26] MEDS: SYMBICORT 160/4.5MCG INHALER 6GM INH SCH ×2 (07:32→19:13)
[2022-09-26 07:43] LABS: HEMATOCRIT 30.1 % (36.0-47.0); HEMOGLOBIN 8.4 g/dl (12.0-15.5)
[2022-09-26] MEDS: INSULIN LISPRO (NovoLOG) PER UNIT SC SCH ×4 (08:32→20:49)
[2022-09-26] MEDS: DIVALPROEX 500MG *ER* TAB PO SCH (08:33)
[2022-09-26] MEDS: DOXYCYCLINE HYCLATE 100MG TABLET PO SCH ×2 (08:33→20:18)
[2022-09-26] MEDS: medroxyPROGESTERone 5MG TABLET PO SCH (08:33)
[2022-09-26] MEDS: predniSONE 20 MG TAB PO SCH (08:33)
[2022-09-26] MEDS: NICOTINE 14 MG/24 HR TRANSDERMAL TD SCH (08:34)
[2022-09-26] MEDS ORDERED: LEVEMIR (INSULIN DETEMIR) 1 UNITS/0.01ML SC SCH ×2 (09:00→21:00)
[2022-09-26] MEDS ORDERED: FUROSEMIDE 20MG/2ML VIAL IV ONE (11:00)
[2022-09-26] MEDS ORDERED: FERRIC CARBOXYMALTOSE INJ 750 MG, VIAL MATE ADAPTER 1 EACH in NS 250 ML IV ONE (12:00)
[2022-09-26 13:51] LABS: HEMATOCRIT 32.5 % (36.0-47.0)
[2022-09-26] MEDS: DIVALPROEX 250MG TAB PO SCH ×2 (14:35→20:18)
[2022-09-26] MEDS: cefTRIAXone SOD 1 GM in D5W MINI-BAG PLUS 50 ML IV SCH (14:35)
[2022-09-26] MEDS ORDERED: CALCIUM CARBONATE 500 MG CHEW U/D PO ONE ×2 (16:00→20:35)
[2022-09-26] MEDS ORDERED: INSULIN LISPRO (NovoLOG) PER UNIT SC ONE (18:00)
[2022-09-26 20:02] LABS: HEMATOCRIT 30.7 % (36.0-47.0); HEMOGLOBIN 8.8 g/dl (12.0-15.5)
[2022-09-26] MEDS: OLANZapine 10 MG TAB PO SCH (20:18)
[2022-09-26] MEDS: ACETAMINOPHEN TAB 650MG DOSE (2X325MG) PO PRN (20:18)
[2022-09-26] MEDS: LEVEMIR (INSULIN DETEMIR) 1 UNITS/0.01ML SC SCH (20:20)
[2022-09-27] MEDS: IPRATROPIUM 0.5MG/ALBUTEROL 2.5MG INH SOL UD 3ML (DUONEB) NEB SCH ×4 (01:04→19:50)
[2022-09-27 02:22] LABS: HEMATOCRIT 31.1 % (36.0-47.0); HEMOGLOBIN 8.8 g/dl (12.0-15.5)
[2022-09-27 05:34] LABS: ABG BASE EXCESS 5.5 (-2.0-2.0); ABG HCO3 32.3 MMOL/L (22.0-26.0); ABG O2 SATURATION 94.3 % (95.0-99.0); ABG PARTIAL PRESSURE CO2 59.7 mmHg (35.0-45.0); ABG PARTIAL PRESSURE O2 75.2 mmHg (75.0-100.0); ABG STANDARD HCO3 29.4 MMOL/L. (22.0-26.0); ABG TOTAL CO2 34.1 MMOL/L (22.0-29.0); ABG pH (ARTERIAL) 7.351 UNITS (7.350-7.450)
[2022-09-27 05:58] LABS: BASO # 0.1 10^3/uL (0.0-0.2); BASO % 0.3 % (0.0-1.0); EOS % 0.1 % (0.0-3.0); HEMATOCRIT 31.9 % (36.0-47.0); HEMOGLOBIN 8.8 g/dl (12.0-15.5); MEAN CORPUSCULAR HEMOGLOBIN 23.4 pg (27.0-33.0); MEAN CORPUSCULAR HGB CONC 27.6 g/dl (32.0-36.5); MEAN CORPUSCULAR VOLUME 84.8 fl (80.0-96.0); MONO # 1.3 10^3/uL (0.0-0.8); MONO % 7.9 % (2.0-8.0); NEUTROPHILS # 10.3 10^3/uL (1.5-8.5); NEUTROPHILS % 63.7 % (36.0-66.0); PLATELET COUNT, AUTOMATED 457 10^3/uL (150-450); RED BLOOD COUNT 3.76 10^6/uL (4.00-5.40); WHITE BLOOD COUNT 16.1 10^3/uL (4.0-10.0)
[2022-09-27 06:00] VITALS: BP 130/71; TEMP 97.2; O2SAT 91
[2022-09-27 06:29] LABS: BLOOD UREA NITROGEN 13 MG/DL (9-23); CALCIUM LEVEL 8.7 MG/DL (8.5-10.1); CARBON DIOXIDE LEVEL 32 MMOL/L (20-31); CHLORIDE LEVEL 102 MMOL/L (98-107); CREATININE FOR GFR 0.49 MG/DL (0.55-1.30); GLOMERULAR FILTRATION RATE > 60.0 (>58); GLUCOSE, FASTING 264 MG/DL (60-100); POTASSIUM SERUM 4.6 MMOL/L (3.5-5.1); SODIUM LEVEL 138 MMOL/L (136-145)
[2022-09-27] MEDS: INSULIN LISPRO (NovoLOG) PER UNIT SC SCH ×4 (07:40→20:45)
[2022-09-27 07:56] LABS: PROCALCITONIN 0.05 ng/ml
[2022-09-27] MEDS: SYMBICORT 160/4.5MCG INHALER 6GM INH SCH ×2 (08:08→19:50)
[2022-09-27] MEDS: medroxyPROGESTERone 5MG TABLET PO SCH (08:29)
[2022-09-27] MEDS: predniSONE 20 MG TAB PO SCH (08:29)
[2022-09-27] MEDS: DOXYCYCLINE HYCLATE 100MG TABLET PO SCH ×2 (08:29→20:45)
[2022-09-27] MEDS: DIVALPROEX 500MG *ER* TAB PO SCH (08:30)
[2022-09-27] MEDS: NICOTINE 14 MG/24 HR TRANSDERMAL TD SCH (08:32)
[2022-09-27] MEDS: LEVEMIR (INSULIN DETEMIR) 1 UNITS/0.01ML SC SCH ×2 (08:33→20:44)
[2022-09-27] MEDS: PANTOPRAZOLE 40MG TAB (PROTONIX) PO SCH (09:00)
[2022-09-27 13:41] LABS: HEMATOCRIT 33.6 % (36.0-47.0); HEMOGLOBIN 9.7 g/dl (12.0-15.5)
[2022-09-27 14:00] VITALS: BP 128/72; TEMP 97.7; O2SAT 91
[2022-09-27] MEDS: DIVALPROEX 250MG TAB PO SCH ×2 (14:24→20:46)
[2022-09-27] MEDS: cefTRIAXone SOD 1 GM in D5W MINI-BAG PLUS 50 ML IV SCH (14:24)
[2022-09-27] MEDS ORDERED: INSULIN LISPRO (NovoLOG) PER UNIT SC ONE (18:30)
[2022-09-27 19:54] VITALS: BP 129/72; TEMP 97.5; O2SAT 100
[2022-09-27 20:08] LABS: HEMATOCRIT 33.1 % (36.0-47.0); HEMOGLOBIN 9.3 g/dl (12.0-15.5)
[2022-09-27] MEDS: OLANZapine 10 MG TAB PO SCH (20:45)
[2022-09-28] MEDS: IPRATROPIUM 0.5MG/ALBUTEROL 2.5MG INH SOL UD 3ML (DUONEB) NEB SCH ×4 (01:49→20:35)
[2022-09-28 05:51] VITALS: BP 114/52; TEMP 97.5; O2SAT 96
[2022-09-28 06:02] LABS: HEMATOCRIT 33.3 % (36.0-47.0); HEMOGLOBIN 9.5 g/dl (12.0-15.5); MEAN CORPUSCULAR HEMOGLOBIN 23.8 pg (27.0-33.0); MEAN CORPUSCULAR HGB CONC 28.5 g/dl (32.0-36.5); MEAN CORPUSCULAR VOLUME 83.5 fl (80.0-96.0); PLATELET COUNT, AUTOMATED 470 10^3/uL (150-450); RED BLOOD COUNT 3.99 10^6/uL (4.00-5.40); WHITE BLOOD COUNT 19.2 10^3/uL (4.0-10.0)
[2022-09-28 06:23] LABS: BLOOD UREA NITROGEN 14 MG/DL (9-23); CALCIUM LEVEL 8.9 MG/DL (8.5-10.1); CARBON DIOXIDE LEVEL 33 MMOL/L (20-31); CHLORIDE LEVEL 103 MMOL/L (98-107); CREATININE FOR GFR 0.54 MG/DL (0.55-1.30); GLOMERULAR FILTRATION RATE > 60.0 (>58); GLUCOSE, FASTING 142 MG/DL (60-100); POTASSIUM SERUM 4.4 MMOL/L (3.5-5.1); SODIUM LEVEL 141 MMOL/L (136-145)
[2022-09-28 07:06] LABS: BASOPHILS 1 % (0-1); LYMPHOCYTES 32 % (16-44); MONOCYTES 5 % (0-5); NEUTROPHILS 62 % (28-66); PLATELET ESTIMATE INCREASED (NORMAL)
[2022-09-28 07:07] LABS: ANISOCYTOSIS 2+; HYPOCHROMASIA 1+
[2022-09-28 07:08] LABS: MICROCYTOSIS 1+
[2022-09-28] MEDS: SYMBICORT 160/4.5MCG INHALER 6GM INH SCH ×2 (08:22→20:35)
[2022-09-28] MEDS: DOXYCYCLINE HYCLATE 100MG TABLET PO SCH ×2 (09:05→20:51)
[2022-09-28] MEDS: DIVALPROEX 500MG *ER* TAB PO SCH (09:05)
[2022-09-28] MEDS: PANTOPRAZOLE 40MG TAB (PROTONIX) PO SCH (09:06)
[2022-09-28] MEDS: medroxyPROGESTERone 5MG TABLET PO SCH (09:06)
[2022-09-28] MEDS: predniSONE 20 MG TAB PO SCH (09:06)
[2022-09-28] MEDS: NICOTINE 14 MG/24 HR TRANSDERMAL TD SCH (09:07)
[2022-09-28] MEDS: INSULIN LISPRO (NovoLOG) PER UNIT SC SCH ×4 (09:08→20:52)
[2022-09-28] MEDS: LEVEMIR (INSULIN DETEMIR) 1 UNITS/0.01ML SC SCH (09:09)
[2022-09-28 10:39] LABS: LDH LACTATE DEHYDROGENASE 178 U/L (120-246)
[2022-09-28 10:44] LABS: TOTAL PROTEIN 6.3 G/DL (5.7-8.2)
[2022-09-28] MEDS: DIVALPROEX 250MG TAB PO SCH ×2 (13:06→20:51)
[2022-09-28 14:00] VITALS: BP 114/67; TEMP 97.7; O2SAT 91
[2022-09-28] MEDS: cefTRIAXone SOD 1 GM in D5W MINI-BAG PLUS 50 ML IV SCH (14:35)
[2022-09-28] MEDS: ACETAMINOPHEN TAB 650MG DOSE (2X325MG) PO PRN (18:18)
[2022-09-28 19:22] VITALS: BP 128/74; TEMP 97.9; O2SAT 91
[2022-09-28 20:50] VITALS: O2SAT 90
[2022-09-28] MEDS: OLANZapine 10 MG TAB PO SCH (20:51)
[2022-09-29] VITALS (7 sets, daily range): BP systolic 116–130; BP diastolic 60–63; TEMP 97.3–97.5; O2SAT 90–93
[2022-09-29] MEDS: IPRATROPIUM 0.5MG/ALBUTEROL 2.5MG INH SOL UD 3ML (DUONEB) NEB SCH ×4 (02:21→20:02)
[2022-09-29 06:02] LABS: BASO # 0.1 10^3/uL (0.0-0.2); BASO % 0.4 % (0.0-1.0); EOS % 0.2 % (0.0-3.0); HEMATOCRIT 32.6 % (36.0-47.0); HEMOGLOBIN 9.2 g/dl (12.0-15.5); LYMPH # 4.7 10^3/uL (1.5-5.0); LYMPH % 26.1 % (24.0-44.0); MEAN CORPUSCULAR HEMOGLOBIN 23.6 pg (27.0-33.0); MEAN CORPUSCULAR HGB CONC 28.2 g/dl (32.0-36.5); MEAN CORPUSCULAR VOLUME 83.6 fl (80.0-96.0); MONO # 1.5 10^3/uL (0.0-0.8); MONO % 8.4 % (2.0-8.0); NEUTROPHILS # 11.1 10^3/uL (1.5-8.5); NEUTROPHILS % 62.1 % (36.0-66.0); PLATELET COUNT, AUTOMATED 455 10^3/uL (150-450); WHITE BLOOD COUNT 17.9 10^3/uL (4.0-10.0)
[2022-09-29 06:34] LABS: ALBUMIN 2.7 G/DL (3.2-5.2); ALKALINE PHOSPHATASE 54 U/L (46-116); ALT/SGPT < 9 U/L (7.0-40); AST/SGOT < 8 U/L (<34); BILIRUBIN,TOTAL 0.2 MG/DL (0.3-1.2); BLOOD UREA NITROGEN 13 MG/DL (9-23); CALCIUM LEVEL 8.5 MG/DL (8.5-10.1); CARBON DIOXIDE LEVEL 32 MMOL/L (20-31); CHLORIDE LEVEL 104 MMOL/L (98-107); GLOMERULAR FILTRATION RATE > 60.0 (>58); GLUCOSE, FASTING 127 MG/DL (60-100); POTASSIUM SERUM 4.1 MMOL/L (3.5-5.1); SODIUM LEVEL 140 MMOL/L (136-145); TOTAL PROTEIN 5.8 G/DL (5.7-8.2)
[2022-09-29] MEDS: SYMBICORT 160/4.5MCG INHALER 6GM INH SCH ×2 (07:45→20:02)
[2022-09-29] MEDS ORDERED: LEVEMIR (INSULIN DETEMIR) 1 UNITS/0.01ML SC SCH (09:00)
[2022-09-29] MEDS: DIVALPROEX 500MG *ER* TAB PO SCH (09:26)
[2022-09-29] MEDS: DOXYCYCLINE HYCLATE 100MG TABLET PO SCH ×2 (09:26→20:26)
[2022-09-29] MEDS: predniSONE 20 MG TAB PO SCH (09:26)
[2022-09-29] MEDS: PANTOPRAZOLE 40MG TAB (PROTONIX) PO SCH (09:26)
[2022-09-29] MEDS: NICOTINE 14 MG/24 HR TRANSDERMAL TD SCH (09:27)
[2022-09-29] MEDS: INSULIN LISPRO (NovoLOG) PER UNIT SC SCH ×7 (09:29→20:22)
[2022-09-29] MEDS: medroxyPROGESTERone 5MG TABLET PO SCH (09:32)
[2022-09-29] MEDS: ACETAMINOPHEN TAB 650MG DOSE (2X325MG) PO PRN ×2 (09:33→19:38)
[2022-09-29 10:09] LABS: BODY FLUID CULTURE Not indicated. (.); LEGIONELLA ANTIGEN URINE Negative (Negative); ORGANISM ID Not indicated. (.); SPECIMEN SOURCE Urine (.); URINE STREP PNEUMONIAE ANTIGEN Negative (Negative)
[2022-09-29] MEDS: DIVALPROEX 250MG TAB PO SCH ×2 (12:39→20:26)
[2022-09-29] MEDS: cefTRIAXone SOD 1 GM in D5W MINI-BAG PLUS 50 ML IV SCH (15:05)
[2022-09-29] MEDS: OLANZapine 10 MG TAB PO SCH (20:26)
[2022-09-30 02:39] VITALS: O2SAT 89
[2022-09-30] MEDS: IPRATROPIUM 0.5MG/ALBUTEROL 2.5MG INH SOL UD 3ML (DUONEB) NEB SCH ×4 (03:04→19:35)
[2022-09-30 06:00] VITALS: BP 109/53; TEMP 97.3; O2SAT 90
[2022-09-30] MEDS: SYMBICORT 160/4.5MCG INHALER 6GM INH SCH ×2 (07:53→19:33)
[2022-09-30] MEDS: DIVALPROEX 500MG *ER* TAB PO SCH (08:01)
[2022-09-30] MEDS: NICOTINE 14 MG/24 HR TRANSDERMAL TD SCH (08:01)
[2022-09-30] MEDS: DOXYCYCLINE HYCLATE 100MG TABLET PO SCH ×2 (08:01→21:45)
[2022-09-30] MEDS: PANTOPRAZOLE 40MG TAB (PROTONIX) PO SCH (08:01)
[2022-09-30 08:12] LABS: HEMATOCRIT 33.1 % (36.0-47.0); HEMOGLOBIN 9.4 g/dl (12.0-15.5); MEAN CORPUSCULAR HEMOGLOBIN 23.9 pg (27.0-33.0); MEAN CORPUSCULAR HGB CONC 28.4 g/dl (32.0-36.5); MEAN CORPUSCULAR VOLUME 84.2 fl (80.0-96.0); PLATELET COUNT, AUTOMATED 430 10^3/uL (150-450); RED BLOOD COUNT 3.93 10^6/uL (4.00-5.40); WHITE BLOOD COUNT 18.4 10^3/uL (4.0-10.0)
[2022-09-30] MEDS: predniSONE 10MG TAB PO SCH (08:24)
[2022-09-30] MEDS: medroxyPROGESTERone 5MG TABLET PO SCH (08:24)
[2022-09-30] MEDS: INSULIN LISPRO (NovoLOG) PER UNIT SC SCH ×4 (08:25→20:57)
[2022-09-30 08:30] LABS: ALBUMIN 2.7 G/DL (3.2-5.2); ALKALINE PHOSPHATASE 52 U/L (46-116); ALT/SGPT 10 U/L (7.0-40); AST/SGOT < 8 U/L (<34); BILIRUBIN,TOTAL 0.2 MG/DL (0.3-1.2); BLOOD UREA NITROGEN 18 MG/DL (9-23); CALCIUM LEVEL 9.2 MG/DL (8.5-10.1); CARBON DIOXIDE LEVEL 30 MMOL/L (20-31); CHLORIDE LEVEL 105 MMOL/L (98-107); CREATININE FOR GFR 0.56 MG/DL (0.55-1.30); GLOMERULAR FILTRATION RATE > 60.0 (>58); GLUCOSE, FASTING 159 MG/DL (60-100); SODIUM LEVEL 139 MMOL/L (136-145); TOTAL PROTEIN 5.9 G/DL (5.7-8.2)
[2022-09-30 08:58] LABS: ANISOCYTOSIS 1+; BASOPHILS 1 % (0-1); HYPOCHROMASIA 2+; LYMPHOCYTES 34 % (16-44); MONOCYTES 5 % (0-5); NEUTROPHILS 60 % (28-66); PLATELET ESTIMATE NORMAL (NORMAL); POIKILOCYTOSIS 1+; POLYCHROMASIA 1+
[2022-09-30] MEDS ORDERED: LEVEMIR (INSULIN DETEMIR) 1 UNITS/0.01ML SC SCH (09:00)
[2022-09-30] MEDS: HumuLIN N INSULIN (NovoLIN N) PER UNIT SC SCH (09:41)
[2022-09-30] MEDS: metFORMIN (GLUCOPHAGE) 500MG TAB PO SCH ×2 (09:41→17:54)
[2022-09-30] MEDS: DIVALPROEX 250MG TAB PO SCH ×2 (12:34→21:45)
[2022-09-30 14:00] VITALS: BP 143/75; TEMP 97.7; O2SAT 89
[2022-09-30] MEDS: cefTRIAXone SOD 1 GM in D5W MINI-BAG PLUS 50 ML IV SCH (16:08)
[2022-09-30 21:00] VITALS: BP 129/49; TEMP 97.7; O2SAT 92
[2022-09-30] MEDS: OLANZapine 10 MG TAB PO SCH (21:45)
[2022-10-01] MEDS: IPRATROPIUM 0.5MG/ALBUTEROL 2.5MG INH SOL UD 3ML (DUONEB) NEB SCH ×3 (03:22→13:23)
[2022-10-01 05:36] VITALS: BP 139/85; TEMP 97.3; O2SAT 93
[2022-10-01] MEDS: SYMBICORT 160/4.5MCG INHALER 6GM INH SCH (07:36)
[2022-10-01 08:00] LABS: HEMATOCRIT 34.7 % (36.0-47.0); HEMOGLOBIN 9.6 g/dl (12.0-15.5); MEAN CORPUSCULAR HGB CONC 27.7 g/dl (32.0-36.5); MEAN CORPUSCULAR VOLUME 86.8 fl (80.0-96.0); PLATELET COUNT, AUTOMATED 381 10^3/uL (150-450); WHITE BLOOD COUNT 16.5 10^3/uL (4.0-10.0)
[2022-10-01] MEDS: DIVALPROEX 500MG *ER* TAB PO SCH (08:19)
[2022-10-01] MEDS: medroxyPROGESTERone 5MG TABLET PO SCH (08:19)
[2022-10-01] MEDS: metFORMIN (GLUCOPHAGE) 500MG TAB PO SCH (08:19)
[2022-10-01] MEDS: predniSONE 10MG TAB PO SCH (08:19)
[2022-10-01] MEDS: PANTOPRAZOLE 40MG TAB (PROTONIX) PO SCH (08:19)
[2022-10-01] MEDS: DOXYCYCLINE HYCLATE 100MG TABLET PO SCH (08:19)
[2022-10-01] MEDS: NICOTINE 14 MG/24 HR TRANSDERMAL TD SCH (08:20)
[2022-10-01] MEDS: INSULIN LISPRO (NovoLOG) PER UNIT SC SCH ×2 (08:21→12:24)
[2022-10-01] MEDS: HumuLIN N INSULIN (NovoLIN N) PER UNIT SC SCH (08:22)
[2022-10-01 08:32] LABS: BLOOD UREA NITROGEN 17 MG/DL (9-23); CALCIUM LEVEL 9.2 MG/DL (8.5-10.1); CARBON DIOXIDE LEVEL 30 MMOL/L (20-31); CHLORIDE LEVEL 105 MMOL/L (98-107); CREATININE FOR GFR 0.51 MG/DL (0.55-1.30); GLOMERULAR FILTRATION RATE > 60.0 (>58); GLUCOSE, FASTING 160 MG/DL (60-100); POTASSIUM SERUM 3.9 MMOL/L (3.5-5.1); SODIUM LEVEL 140 MMOL/L (136-145)
[2022-10-01] MEDS ORDERED: LEVEMIR (INSULIN DETEMIR) 1 UNITS/0.01ML SC SCH (09:00)
[2022-10-01] MEDS ORDERED: SYMB16INH INH (09:08)
[2022-10-01] MEDS ORDERED: METF500T13 PO (09:08)
[2022-10-01] MEDS ORDERED: MEDR5TAB3 PO (09:08)
[2022-10-01 09:11] LABS: ATYPICAL LYMPH 4 % (0-5); LYMPHOCYTES 24 % (16-44); MONOCYTES 5 % (0-5); NEUTROPHILS 67 % (28-66)
[2022-10-01 09:13] LABS: ANISOCYTOSIS 3+; HYPOCHROMASIA 2+
[2022-10-01 09:15] LABS: PLATELET ESTIMATE NORMAL (NORMAL)
[2022-10-01] MEDS ORDERED: PRED20TA PO (10:16)
[2022-10-01] MEDS ORDERED: IPRA0.00 INH (10:16)
[2022-10-01] MEDS ORDERED: AZIT-12 PO (10:20)
[2022-10-01] MEDS ORDERED: INSU100I48 SQ (10:20)
[2022-10-01] MEDS ORDERED: METF-838 PO (10:30)
[2022-10-01 11:07] VITALS: O2SAT 85
[2022-10-01] MEDS: DIVALPROEX 250MG TAB PO SCH (14:00)
[2022-10-01 14:36] VITALS: BP 122/79; TEMP 97.7; O2SAT 91
[2022-10-01] MEDS ORDERED: BLOOKIT21 XX (14:46)
[2022-10-01] MEDS ORDERED: ALCOPAD25 TOP (14:46)
[2022-10-01] MEDS ORDERED: GLUC1TES2 XX (14:46)
[2022-10-01] MEDS ORDERED: PEN1MIS21 SC (14:46)
[2022-10-01] MEDS ORDERED: LANC30MI XX (14:46)
== END 2022-10-01 17:03 | disposition home health service (06) | DRG 871 ==
LOC: M ED 07:35 → M ED INP 12:44 → EEVIPCON 12:44 → ENRESERV 13:36 → M PCU 14:45 → M MSPAV 09-26 15:50
PROVIDERS: ADMIT Internal Medicine; ATTEND Student in an Organized Health Care Education/Training Program
PROC: 30233N1 Transfusion of Nonautologous Red Blood Cells into Peripheral Vein, Percutaneous Approach (ICD-10-PCS; principal; 2022-09-25)
DX: A41.9 Sepsis, unspecified organism (principal); J96.01 Acute respiratory failure with hypoxia; J18.9 Pneumonia, unspecified organism; J96.02 Acute respiratory failure with hypercapnia; J45.901 Unspecified asthma with (acute) exacerbation; J44.1 Chronic obstructive pulmonary disease with (acute) exacerbation; E87.20 Acidosis, unspecified; J44.0 Chronic obstructive pulmonary disease with (acute) lower respiratory infection; J90 Pleural effusion, not elsewhere classified; Z68.41 Body mass index [BMI] 40.0-44.9, adult; F20.9 Schizophrenia, unspecified; D50.9 Iron deficiency anemia, unspecified; F17.210 Nicotine dependence, cigarettes, uncomplicated; E11.65 Type 2 diabetes mellitus with hyperglycemia; G43.909 Migraine, unspecified, not intractable, without status migrainosus; N92.0 Excessive and frequent menstruation with regular cycle; Z91.010 Allergy to peanuts; Z91.040 Latex allergy status; Z88.8 Allergy status to other drugs, medicaments and biological substances; Z79.899 Other long term (current) drug therapy; Z79.4 Long term (current) use of insulin

== ENCOUNTER → 2022-12-21 | Outpatient (REF) | payer MEDICARE ==
[~2022-12-21] MED LIST changes: +ALBU2.5V10 NEB; +ALCOPAD25 TOP; +AMOX875T2 PO; +AZIT-12 PO; +BLOOKIT21 XX; +DIVA250T67 PO; +DIVA500T9 PO; +GLUC1TES2 XX; +HALO5TAB33 PO; +INSU100I48 SQ; +IPRA0.00 INH; +LANC30MI XX; +MEDR5TAB3 PO; +METF-838 PO; +METF500T13 PO; +PEN1MIS21 SC; +PRED20TA PO; +SYMB16INH INH
[2022-12-21 19:24] LABS: HEMOGLOBIN A1c 8.4 % (4.0-6.0)
[2022-12-21 19:56] LABS: CHOLESTEROL RISK RATIO 5.23 (<5); FREE T4 0.81 NG/DL (0.89-1.76); HDL CHOLESTEROL 31.5 MG/DL (>40); LDL CHOLESTEROL 70.1 MG/DL (<100); NON-HDL-C 133.5 MG/DL; THYROID STIMULATING HORMONE 3.956 uIU/ML (0.55-4.78)
== END ==
LOC: M LAB REF 16:40
PROVIDERS: ATTEND Nurse Practitioner Family
DX: E11.9 Type 2 diabetes mellitus without complications (principal); R94.6 Abnormal results of thyroid function studies; R79.89 Other specified abnormal findings of blood chemistry

== ENCOUNTER → 2023-01-18 | Outpatient (REF) | payer MEDICARE ==
[~2023-01-18] MED LIST changes: +PEN-308 SC; -PEN1MIS21 SC
[2023-01-18 17:59] LABS: ALBUMIN 3.4 G/DL (3.2-5.2); ALKALINE PHOSPHATASE 97 U/L (46-116); ALT/SGPT 23 U/L (7.0-40); AST/SGOT 9 U/L (<34); BILIRUBIN,TOTAL 0.2 MG/DL (0.3-1.2); BLOOD UREA NITROGEN 7 MG/DL (9-23); CALCIUM LEVEL 9.4 MG/DL (8.5-10.1); CARBON DIOXIDE LEVEL 31 MMOL/L (20-31); CHLORIDE LEVEL 102 MMOL/L (98-107); GLOMERULAR FILTRATION RATE > 60.0 (>58); GLUCOSE, FASTING 115 MG/DL (60-100); POTASSIUM SERUM 4.8 MMOL/L (3.5-5.1); SODIUM LEVEL 139 MMOL/L (136-145); TOTAL PROTEIN 7.1 G/DL (5.7-8.2)
== END ==
LOC: M LAB REF 17:22
PROVIDERS: ATTEND Nurse Practitioner Family
DX: E78.5 Hyperlipidemia, unspecified (principal)

== ENCOUNTER → 2023-06-22 | Outpatient (CLI) | payer MEDICARE, SELFPAY | LOC: M LAB 11:43 | PROVIDERS: ATTEND Nurse Practitioner Family | DX: B34.9 Viral infection, unspecified (principal) ==

== ENCOUNTER → 2023-07-01 | Outpatient (REF) | payer MEDICARE ==
[2023-07-01 19:03] LABS: BASO # 0.1 10^3/uL (0.0-0.2); BASO % 0.7 % (0.0-1.0); EOS # 0.3 10^3/uL (0.0-0.5); EOS % 2.8 % (0.0-3.0); HEMATOCRIT 50.7 % (36.0-47.0); HEMOGLOBIN 15.3 g/dl (12.0-15.5); LYMPH # 2.4 10^3/uL (1.5-5.0); LYMPH % 22.5 % (24.0-44.0); MEAN CORPUSCULAR HEMOGLOBIN 27.7 pg (27.0-33.0); MEAN CORPUSCULAR HGB CONC 30.2 g/dl (32.0-36.5); MEAN CORPUSCULAR VOLUME 91.7 fl (80.0-96.0); MONO # 0.7 10^3/uL (0.0-0.8); NEUTROPHILS # 7.2 10^3/uL (1.5-8.5); NEUTROPHILS % 67.3 % (36.0-66.0); PLATELET COUNT, AUTOMATED 364 10^3/uL (150-450); RED BLOOD COUNT 5.53 10^6/uL (4.00-5.40); WHITE BLOOD COUNT 10.8 10^3/uL (4.0-10.0)
[2023-07-01 19:32] LABS: ALBUMIN 3.1 G/DL (3.2-5.2); ALKALINE PHOSPHATASE 76 U/L (46-116); ALT/SGPT 13 U/L (7.0-40); AST/SGOT 8 U/L (<34); BILIRUBIN,TOTAL 0.2 MG/DL (0.3-1.2); BLOOD UREA NITROGEN 9 MG/DL (9-23); CALCIUM LEVEL 8.8 MG/DL (8.5-10.1); CARBON DIOXIDE LEVEL 28 MMOL/L (20-31); CHLORIDE LEVEL 105 MMOL/L (98-107); CHOLESTEROL LEVEL 118 MG/DL (<200); CHOLESTEROL RISK RATIO 4.48 (<5); CREATININE FOR GFR 0.45 MG/DL (0.55-1.30); GLOMERULAR FILTRATION RATE > 60.0 (>58); GLUCOSE, FASTING 205 MG/DL (60-100); HDL CHOLESTEROL 26.3 MG/DL (>40); LDL CHOLESTEROL 48.7 MG/DL (<100); MAGNESIUM LEVEL 1.9 MG/DL (1.8-2.4); NON-HDL-C 91.7 MG/DL; SODIUM LEVEL 140 MMOL/L (136-145); TOTAL PROTEIN 6.7 G/DL (5.7-8.2); TRIGLYCERIDES LEVEL 215 MG/DL (<150)
[2023-07-01 19:33] LABS: THYROID STIMULATING HORMONE 3.455 uIU/ML (0.55-4.78)
[2023-07-01 19:34] LABS: HEMOGLOBIN A1c 7.4 % (4.0-6.0); TOTAL 25(OH) VITAMIN D 35.2 NG/ML (20.0-100.0)
== END ==
LOC: M LAB REF 16:34
PROVIDERS: ATTEND Nurse Practitioner Family
DX: E66.01 Morbid (severe) obesity due to excess calories (principal); E55.9 Vitamin D deficiency, unspecified; Z79.899 Other long term (current) drug therapy

== ENCOUNTER 2023-08-05 13:37 | Emergency (ER) | payer MEDICAID, MEDICARE, OTHER ==
[~2023-08-05] VITALS: Ht 162.6 cm; Wt 116.2 kg
[2023-08-05] MEDS: IPRATROPIUM 0.5MG/ALBUTEROL 2.5MG INH SOL UD 3ML (DUONEB) NEB ONE (16:43)
[2023-08-05] MEDS ORDERED: IPRA0.00 INH (16:59)
[2023-08-05] MEDS ORDERED: PRED20TA PO (16:59)
[2023-08-05 17:17] VITALS: BP 132/68; TEMP 98.6; O2SAT 92
[2023-08-05] MEDS: ACETAMINOPHEN 500 MG TAB PO ONE (17:32)
[2023-08-05] MEDS: predniSONE 20 MG TAB PO ONE (17:33)
== END 2023-08-05 17:39 | disposition home or self-care (01) ==
LOC: M ED 13:37
DX: J06.9 Acute upper respiratory infection, unspecified (principal); F17.200 Nicotine dependence, unspecified, uncomplicated; G43.909 Migraine, unspecified, not intractable, without status migrainosus; K21.9 Gastro-esophageal reflux disease without esophagitis; F41.9 Anxiety disorder, unspecified; F32.A Depression, unspecified; Z91.010 Allergy to peanuts; Z91.040 Latex allergy status; Z88.8 Allergy status to other drugs, medicaments and biological substances; Z79.52 Long term (current) use of systemic steroids; Z79.1 Long term (current) use of non-steroidal anti-inflammatories (NSAID); Z79.899 Other long term (current) drug therapy
CPT/HCPCS: 71046; 87486; 87581; 87633; 87798; 94640; 99283; J7512

== ENCOUNTER → 2023-10-26 | Outpatient (REF) | LOC: M PLAIMG 11:55 | PROVIDERS: ATTEND Internal Medicine | DX: M54.50 Low back pain, unspecified (principal) ==